=== PATIENT | female | born 1965 | race African-American/Black ===

== ENCOUNTER 2021-02-18 12:49 | Inpatient (IN) ==
[2021-02-18 14:16] LABS: Basophils # 0.1 10*3/uL (0.0-0.2); Eosinophils # 0.1 10*3/uL (0.0-0.87); Eosinophils % 1.6 % (0.00-10.9); Hematocrit 36.2 VOL% (35.7-47.0); Hemoglobin 11.5 GM/DL (12.0-16.0); Immature Granulocytes % 0.2 %; Immature Granulocytes Absolute 0.01 #; Lymphocytes % 32.5 % (21.3-54.2); Mean Corpuscular HGB Conc 31.8 GM/DL (32-36); Mean Corpuscular Volume 93.8 FL (87-102); Mean Platelet Volume 11.7 FL (9.6-12.0); Monocytes % 15.6 % (1.7-12.7); Neutrophils % 49.1 % (38.7-73.9); Platelet Count 185 T/CUMM (130-400); Red Blood Count 3.86 MC/CUMM (3.8-5.5); Red Cell Distribution Width 15.8 % (9.3-17.3); White Blood Count 6.2 T/CUMM (4-12)
[2021-02-18 14:41] LABS: INR 3.2; PT Patient Result 32.4 SECS (10.5-12.0); Partial Thromboplastin Time 34.5 SECS (23.8-32.1)
[2021-02-18 15:01] LABS: Band Neutrophils 1 % (0-10); Eosinophils 5 % (0-10); Lymphocytes 24 % (20-55); Metamyelocytes 1 %; Segmented Neutrophils 53 % (50-85); Total Cells Counted 100
[2021-02-18 15:02] LABS: Atypical Lymphocytes Few; Platelet Estimate Adequate; Polychromasia Slight
[2021-02-18 15:03] LABS: Albumin 1.9 G/DL (3.4-5.0); Bilirubin,Total 2.6 MG/DL (0.20-1.00); Osmolality,Calculated 276.7 MOS/KG (273-304); Potassium 4.3 MMOL/L (3.5-5.1)
[2021-02-18 18:05] LABS: Bacteria,Urine Occasional /HPF (Few); Bilirubin,Urine Negative (Negative); Blood, Urine Negative (Negative); Glucose,Urine (UA) Negative (Negative); Hyaline Casts,Urine 14 /LPF (0-3); Ketones,Urine Negative (Negative); Mucus,Urine Few /LPF (Occasional); Nitrite,Urine Negative (Negative); Protein,Urine Negative; RBC,Urine 5 /HPF (0-4); Squamous Epithelial Cell,Urine Few /HPF (0-10); Urine Appearance Slightly Hazy (Clear); Urine Color Amber (Yellow); Urine Specific Gravity 1.019 (1.001-1.035)
[2021-02-18] MEDS ORDERED: cefTRIAXone 1,000 MG in SODIUM CHLORIDE 0.9% 100 ML IV STA (19:15)
[2021-02-18] MEDS ORDERED: SODIUM CHLORIDE 0.9% 1,000 ML IV STA (19:57)
[2021-02-18] MEDS ORDERED: DEXTROSE 50% 25 GM/50 ML SYRINGE IV PRN (20:12)
[2021-02-18] MEDS ORDERED: GLUCAGON 1 MG VIAL IM PRN (20:12)
[2021-02-18] MEDS: LACTULOSE 20 GM/30 ML UDCUP PO SCH (21:13)
[2021-02-18] MEDS: RIFAXIMIN 550 MG TABLET PO SCH (22:30)
[2021-02-19] MEDS: LACTULOSE 20 GM/30 ML UDCUP PO SCH ×4 (04:00→22:03)
[2021-02-19 04:30] LABS: Basophils % 0.6 % (0.0-0.8); Eosinophils # 0.1 10*3/uL (0.0-0.87); Eosinophils % 1.7 % (0.00-10.9); Hemoglobin 10.2 GM/DL (12.0-16.0); Immature Granulocytes % 0.2 %; Immature Granulocytes Absolute 0.01 #; Lymphocytes # 1.6 10*3/uL (1.4-4.0); Lymphocytes % 23.8 % (21.3-54.2); Mean Corpuscular HGB Conc 31.9 GM/DL (32-36); Mean Corpuscular Volume 94.1 FL (87-102); Mean Platelet Volume 10.4 FL (9.6-12.0); Monocytes % 12.3 % (1.7-12.7); Neutrophils % 61.4 % (38.7-73.9); Platelet Count 233 T/CUMM (130-400); Red Cell Distribution Width 15.8 % (9.3-17.3); White Blood Count 6.5 T/CUMM (4-12)
[2021-02-19 04:49] LABS: Albumin 1.6 G/DL (3.4-5.0); Calcium 7.4 MG/DL (8.5-10.1); Osmolality,Calculated 276.7 MOS/KG (273-304); Potassium 3.3 MMOL/L (3.5-5.1)
[2021-02-19 04:53] LABS: Albumin 1.6 G/DL (3.4-5.0); Bilirubin,Direct 1.25 MG/DL (0.0-0.20); Bilirubin,Indirect 0.8 MG/DL (0.0-1.0); Total Protein 7.1 G/DL (6.4-8.2)
[2021-02-19] MEDS: RIFAXIMIN 550 MG TABLET PO SCH ×2 (10:13→22:03)
[2021-02-19] MEDS ORDERED: PHYTONADIONE INJ 5 MG in SODIUM CHLORIDE 0.9% 50 ML IV ONE ×2 (14:00→20:00)
[2021-02-19] MEDS ORDERED: INFLUENZA VIRUS VACCINE 0.5 ML SYRINGE IM ONE (14:30)
[2021-02-19] MEDS: SILVER SULFADIAZINE 1% CREAM 25 GM TUBE TOP SCH (16:25)
[2021-02-19] MEDS ORDERED: LORazepam 2 MG/1 ML VIAL IV ONE (17:06)
[2021-02-19] MEDS: MENTHOL/ZINC OXIDE OINT 71 GM JAR TOP SCH ×2 (18:19→22:03)
[2021-02-19] MEDS: cefTRIAXone 1,000 MG in SODIUM CHLORIDE 0.9% 100 ML IV SCH (23:59)
[2021-02-20] MEDS: RIFAXIMIN 550 MG TABLET PO SCH ×3 (00:16→21:45)
[2021-02-20] MEDS: LACTULOSE 20 GM/30 ML UDCUP PO SCH ×5 (00:16→20:33)
[2021-02-20] MEDS: LORazepam 2 MG/1 ML VIAL IV PRN ×2 (07:54→23:28)
[2021-02-20] MEDS: SILVER SULFADIAZINE 1% CREAM 25 GM TUBE TOP SCH (09:08)
[2021-02-20] MEDS: MENTHOL/ZINC OXIDE OINT 71 GM JAR TOP SCH ×2 (09:08→20:45)
[2021-02-20] MEDS: PANTOPRAZOLE 40 MG TABLET PO SCH (09:08)
[2021-02-20 09:48] LABS: Albumin 1.7 G/DL (3.4-5.0); Bilirubin,Total 2.5 MG/DL (0.20-1.00); Calcium 8.4 MG/DL (8.5-10.1); Osmolality,Calculated 273.8 MOS/KG (273-304); Potassium 3.6 MMOL/L (3.5-5.1); Total Protein 8.1 G/DL (6.4-8.2)
[2021-02-20 11:37] LABS: INR 1.3; PT Patient Result 13.8 SECS (10.5-12.0)
[2021-02-20] MEDS: FUROSEMIDE 40 MG TABLET PO SCH (14:55)
[2021-02-20] MEDS: SPIRONOLACTONE 100 MG TABLET PO SCH (14:55)
[2021-02-20] MEDS: PROPRANOLOL 20 MG TABLET PO SCH ×2 (14:55→21:45)
[2021-02-20 18:13] LABS: Neutrophils,Peritoneal Fluid 6 %
[2021-02-20 18:14] LABS: RBC,Peritoneal Fluid 36 T/CUMM
[2021-02-20] MEDS: cefTRIAXone 1,000 MG in SODIUM CHLORIDE 0.9% 100 ML IV SCH (20:31)
[2021-02-21] MEDS: LACTULOSE 20 GM/30 ML UDCUP PO SCH ×4 (02:31→20:29)
[2021-02-21 06:01] LABS: Basophils % 0.8 % (0.0-0.8); Eosinophils # 0.1 10*3/uL (0.0-0.87); Eosinophils % 2.3 % (0.00-10.9); Hematocrit 34.2 VOL% (35.7-47.0); Immature Granulocytes % 0.4 %; Immature Granulocytes Absolute 0.02 #; Lymphocytes # 1.5 10*3/uL (1.4-4.0); Lymphocytes % 28.3 % (21.3-54.2); Mean Corpuscular HGB Conc 32.2 GM/DL (32-36); Mean Corpuscular Volume 95.5 FL (87-102); Monocytes % 14.7 % (1.7-12.7); Neutrophils % 53.5 % (38.7-73.9); Platelet Count 208 T/CUMM (130-400); Red Blood Count 3.58 MC/CUMM (3.8-5.5); Red Cell Distribution Width 15.5 % (9.3-17.3); White Blood Count 5.2 T/CUMM (4-12)
[2021-02-21 06:36] LABS: Albumin 1.7 G/DL (3.4-5.0); Bilirubin,Total 2.4 MG/DL (0.20-1.00); Calcium 8.2 MG/DL (8.5-10.1); Osmolality,Calculated 272.7 MOS/KG (273-304); Potassium 4.4 MMOL/L (3.5-5.1); Total Protein 7.9 G/DL (6.4-8.2)
[2021-02-21 07:07] LABS: PT Patient Result 31.3 SECS (10.5-12.0)
[2021-02-21] MEDS: FOLIC ACID 1 MG TABLET PO SCH (09:25)
[2021-02-21] MEDS: SPIRONOLACTONE 100 MG TABLET PO SCH (09:25)
[2021-02-21] MEDS: PROPRANOLOL 20 MG TABLET PO SCH ×2 (09:26→20:29)
[2021-02-21] MEDS: FUROSEMIDE 40 MG TABLET PO SCH (09:27)
[2021-02-21] MEDS: PANTOPRAZOLE 40 MG TABLET PO SCH (09:27)
[2021-02-21] MEDS: RIFAXIMIN 550 MG TABLET PO SCH ×2 (09:28→20:29)
[2021-02-21] MEDS: MENTHOL/ZINC OXIDE OINT 71 GM JAR TOP SCH ×2 (09:29→20:29)
[2021-02-21] MEDS: SILVER SULFADIAZINE 1% CREAM 25 GM TUBE TOP SCH (09:30)
[2021-02-21] MEDS ORDERED: MORPHINE 2 MG/1 ML SYRINGE IV PRN (11:07)
[2021-02-21] MEDS: LORazepam 2 MG/1 ML VIAL IV PRN (12:56)
[2021-02-21] MEDS: cefTRIAXone 1,000 MG in SODIUM CHLORIDE 0.9% 100 ML IV SCH (20:29)
[2021-02-22] MEDS: LACTULOSE 20 GM/30 ML UDCUP PO SCH ×4 (02:57→20:35)
[2021-02-22 09:51] LABS: Basophils % 0.9 % (0.0-0.8); Eosinophils # 0.2 10*3/uL (0.0-0.87); Eosinophils % 3.6 % (0.00-10.9); Hematocrit 34.4 VOL% (35.7-47.0); Hemoglobin 10.9 GM/DL (12.0-16.0); Immature Granulocytes % 0.5 %; Immature Granulocytes Absolute 0.02 #; Lymphocytes # 1.7 10*3/uL (1.4-4.0); Mean Corpuscular HGB Conc 31.7 GM/DL (32-36); Mean Corpuscular Volume 93.5 FL (87-102); Mean Platelet Volume 9.9 FL (9.6-12.0); Monocytes % 13.3 % (1.7-12.7); Neutrophils % 43.7 % (38.7-73.9); Platelet Count 239 T/CUMM (130-400); Red Blood Count 3.68 MC/CUMM (3.8-5.5); Red Cell Distribution Width 15.4 % (9.3-17.3); White Blood Count 4.4 T/CUMM (4-12)
[2021-02-22 10:00] LABS: INR 1.2; PT Patient Result 13.8 SECS (10.5-12.0)
[2021-02-22] MEDS: RIFAXIMIN 550 MG TABLET PO SCH ×3 (10:03→20:55)
[2021-02-22] MEDS: FUROSEMIDE 40 MG TABLET PO SCH (10:03)
[2021-02-22] MEDS: PROPRANOLOL 20 MG TABLET PO SCH ×2 (10:04→20:36)
[2021-02-22] MEDS: FOLIC ACID 1 MG TABLET PO SCH (10:04)
[2021-02-22] MEDS: SPIRONOLACTONE 100 MG TABLET PO SCH (10:04)
[2021-02-22] MEDS: PANTOPRAZOLE 40 MG TABLET PO SCH (10:04)
[2021-02-22 10:09] LABS: Calcium 8.3 MG/DL (8.5-10.1); Osmolality,Calculated 279.1 MOS/KG (273-304); Potassium 3.5 MMOL/L (3.5-5.1)
[2021-02-22 10:21] LABS: Anisocytosis 1+; Band Neutrophils 2 % (0-10); Burr Cells Few; Eosinophils 6 % (0-10); Lymphocytes 34 % (20-55); Macrocytosis 1+; Platelet Estimate Normal; Segmented Neutrophils 44 % (50-85); Smudge Cells Few; Target Cells Few; Total Cells Counted 100
[2021-02-22] MEDS: MENTHOL/ZINC OXIDE OINT 71 GM JAR TOP SCH ×2 (11:36→20:36)
[2021-02-22] MEDS: CIPROFLOXACIN INJ 400 MG/200 ML PREMIX IV SCH ×2 (11:36→20:36)
[2021-02-22] MEDS: SILVER SULFADIAZINE 1% CREAM 25 GM TUBE TOP SCH (11:37)
[2021-02-23] MEDS: LACTULOSE 20 GM/30 ML UDCUP PO SCH ×4 (02:19→20:53)
[2021-02-23] MEDS: LORazepam 2 MG/1 ML VIAL IV PRN ×2 (05:07→12:45)
[2021-02-23 05:33] LABS: INR 1.7; PT Patient Result 18.2 SECS (10.5-12.0)
[2021-02-23 05:39] LABS: Calcium 7.9 MG/DL (8.5-10.1); Osmolality,Calculated 275.4 MOS/KG (273-304); Potassium 3.3 MMOL/L (3.5-5.1)
[2021-02-23 06:07] LABS: Basophils % 0.7 % (0.0-0.8); Eosinophils # 0.2 10*3/uL (0.0-0.87); Eosinophils % 3.5 % (0.00-10.9); Hematocrit 34.4 VOL% (35.7-47.0); Hemoglobin 10.7 GM/DL (12.0-16.0); Immature Granulocytes % 0.5 %; Immature Granulocytes Absolute 0.02 #; Lymphocytes # 1.5 10*3/uL (1.4-4.0); Lymphocytes % 35.1 % (21.3-54.2); Mean Corpuscular HGB Conc 31.1 GM/DL (32-36); Mean Platelet Volume 10.5 FL (9.6-12.0); Monocytes % 21.2 % (1.7-12.7); Platelet Count 183 T/CUMM (130-400); Red Blood Count 3.44 MC/CUMM (3.8-5.5); Red Cell Distribution Width 15.8 % (9.3-17.3); White Blood Count 4.3 T/CUMM (4-12)
[2021-02-23 06:57] LABS: Band Neutrophils 2 % (0-10); Eosinophils 2 % (0-10); Lymphocytes 33 % (20-55); Metamyelocytes 2 %; Platelet Estimate Normal; Segmented Neutrophils 60 % (50-85); Smudge Cells Few; Total Cells Counted 100
[2021-02-23 06:58] LABS: Anisocytosis 1+; Macrocytosis 1+; Tear Drop Cells Few
[2021-02-23] MEDS: FUROSEMIDE 40 MG TABLET PO SCH (09:30)
[2021-02-23] MEDS: RIFAXIMIN 550 MG TABLET PO SCH ×2 (09:30→20:53)
[2021-02-23] MEDS: FOLIC ACID 1 MG TABLET PO SCH (09:31)
[2021-02-23] MEDS: MENTHOL/ZINC OXIDE OINT 71 GM JAR TOP SCH ×2 (09:31→20:53)
[2021-02-23] MEDS: SILVER SULFADIAZINE 1% CREAM 25 GM TUBE TOP SCH (09:31)
[2021-02-23] MEDS: PANTOPRAZOLE 40 MG TABLET PO SCH (09:31)
[2021-02-23] MEDS: PROPRANOLOL 20 MG TABLET PO SCH ×2 (09:50→20:53)
[2021-02-23] MEDS: SPIRONOLACTONE 100 MG TABLET PO SCH (09:50)
[2021-02-23] MEDS: CIPROFLOXACIN INJ 400 MG/200 ML PREMIX IV SCH ×2 (09:50→20:53)
[2021-02-23] MEDS ORDERED: PHYTONADIONE 5 MG/5 ML ORAL.SYR PO ONE (10:30)
[2021-02-23] MEDS ORDERED: HALOPERIDOL 1 MG TABLET PO PRN (15:58)
[2021-02-24] MEDS: LACTULOSE 20 GM/30 ML UDCUP PO SCH ×4 (03:19→22:37)
[2021-02-24] MEDS: CIPROFLOXACIN INJ 400 MG/200 ML PREMIX IV SCH ×2 (08:19→22:36)
[2021-02-24] MEDS: PANTOPRAZOLE 40 MG TABLET PO SCH (08:20)
[2021-02-24] MEDS: FOLIC ACID 1 MG TABLET PO SCH (08:20)
[2021-02-24] MEDS: FUROSEMIDE 40 MG TABLET PO SCH (08:20)
[2021-02-24] MEDS: SPIRONOLACTONE 100 MG TABLET PO SCH (08:20)
[2021-02-24] MEDS: PROPRANOLOL 20 MG TABLET PO SCH ×2 (08:20→22:37)
[2021-02-24] MEDS: RIFAXIMIN 550 MG TABLET PO SCH ×2 (08:20→22:37)
[2021-02-24] MEDS: SILVER SULFADIAZINE 1% CREAM 25 GM TUBE TOP SCH (08:21)
[2021-02-24] MEDS: MENTHOL/ZINC OXIDE OINT 71 GM JAR TOP SCH ×2 (08:21→22:37)
[2021-02-24 08:58] LABS: Basophils % 0.9 % (0.0-0.8); Eosinophils # 0.1 10*3/uL (0.0-0.87); Eosinophils % 2.8 % (0.00-10.9); Hematocrit 33.5 VOL% (35.7-47.0); Hemoglobin 10.7 GM/DL (12.0-16.0); Immature Granulocytes % 0.5 %; Immature Granulocytes Absolute 0.02 #; Lymphocytes # 1.5 10*3/uL (1.4-4.0); Lymphocytes % 35.2 % (21.3-54.2); Mean Corpuscular HGB Conc 31.9 GM/DL (32-36); Mean Corpuscular Volume 96.3 FL (87-102); Mean Platelet Volume 10.5 FL (9.6-12.0); Monocytes % 20.1 % (1.7-12.7); Neutrophils % 40.5 % (38.7-73.9); Platelet Count 162 T/CUMM (130-400); Red Blood Count 3.48 MC/CUMM (3.8-5.5); Red Cell Distribution Width 15.4 % (9.3-17.3); White Blood Count 4.3 T/CUMM (4-12)
[2021-02-24 09:08] LABS: INR 1.4; PT Patient Result 15.1 SECS (10.5-12.0)
[2021-02-24 09:15] LABS: Calcium 8.1 MG/DL (8.5-10.1); Osmolality,Calculated 272.7 MOS/KG (273-304); Potassium 3.3 MMOL/L (3.5-5.1)
[2021-02-24 09:21] LABS: Band Neutrophils 4 % (0-10); Hypochromasia 1+; Lymphocytes 22 % (20-55); Segmented Neutrophils 63 % (50-85); Total Cells Counted 100
[2021-02-24 09:22] LABS: Macrocytosis 1+; Ovalocytes Slight; Platelet Estimate Adequate; Target Cells Slight
[2021-02-24] MEDS ORDERED: POTASSIUM CHLORIDE 10 MEQ TABLET PO ONE (13:55)
[2021-02-25] MEDS: LACTULOSE 20 GM/30 ML UDCUP PO SCH ×4 (04:13→21:37)
[2021-02-25 06:42] LABS: Basophils % 0.5 % (0.0-0.8); Eosinophils # 0.1 10*3/uL (0.0-0.87); Eosinophils % 1.2 % (0.00-10.9); Hematocrit 31.4 VOL% (35.7-47.0); Hemoglobin 10.5 GM/DL (12.0-16.0); Immature Granulocytes % 0.3 %; Immature Granulocytes Absolute 0.02 #; Lymphocytes # 1.7 10*3/uL (1.4-4.0); Lymphocytes % 25.7 % (21.3-54.2); Mean Corpuscular HGB Conc 33.4 GM/DL (32-36); Mean Corpuscular Volume 90.2 FL (87-102); Monocytes % 24.6 % (1.7-12.7); Neutrophils % 47.7 % (38.7-73.9); Platelet Count 167 T/CUMM (130-400); Red Blood Count 3.48 MC/CUMM (3.8-5.5); Red Cell Distribution Width 15.3 % (9.3-17.3); White Blood Count 6.5 T/CUMM (4-12)
[2021-02-25 06:55] LABS: INR 1.4; PT Patient Result 15.5 SECS (10.5-12.0)
[2021-02-25 07:10] LABS: Calcium 8.1 MG/DL (8.5-10.1); Osmolality,Calculated 277.4 MOS/KG (273-304); Potassium 3.2 MMOL/L (3.5-5.1)
[2021-02-25 07:13] LABS: Band Neutrophils 6 % (0-10); Eosinophils 1 % (0-10); Lymphocytes 15 % (20-55); Platelet Estimate Normal; Segmented Neutrophils 63 % (50-85); Smudge Cells 1+; Total Cells Counted 100
[2021-02-25 07:14] LABS: Anisocytosis 2+; Macrocytosis 1+; Tear Drop Cells Few
[2021-02-25] MEDS ORDERED: POTASSIUM CHLORIDE 10 MEQ TABLET PO ONE (09:05)
[2021-02-25] MEDS: PROPRANOLOL 20 MG TABLET PO SCH ×2 (09:19→21:38)
[2021-02-25] MEDS: SPIRONOLACTONE 100 MG TABLET PO SCH (09:19)
[2021-02-25] MEDS: RIFAXIMIN 550 MG TABLET PO SCH ×2 (09:19→21:37)
[2021-02-25] MEDS: PANTOPRAZOLE 40 MG TABLET PO SCH (09:19)
[2021-02-25] MEDS: FOLIC ACID 1 MG TABLET PO SCH (09:20)
[2021-02-25] MEDS: FUROSEMIDE 40 MG TABLET PO SCH (09:20)
[2021-02-25] MEDS: CIPROFLOXACIN INJ 400 MG/200 ML PREMIX IV SCH ×2 (10:21→21:37)
[2021-02-25] MEDS: MENTHOL/ZINC OXIDE OINT 71 GM JAR TOP SCH ×2 (10:21→21:38)
[2021-02-25] MEDS: SILVER SULFADIAZINE 1% CREAM 25 GM TUBE TOP SCH (10:21)
[2021-02-26] MEDS: LACTULOSE 20 GM/30 ML UDCUP PO SCH (04:53)
[2021-02-26 06:22] LABS: Basophils % 0.4 % (0.0-0.8); Eosinophils % 0.4 % (0.00-10.9); Hematocrit 29.1 VOL% (35.7-47.0); Hemoglobin 9.7 GM/DL (12.0-16.0); Immature Granulocytes % 0.4 %; Immature Granulocytes Absolute 0.03 #; Lymphocytes # 1.9 10*3/uL (1.4-4.0); Lymphocytes % 23.6 % (21.3-54.2); Mean Corpuscular HGB Conc 33.3 GM/DL (32-36); Mean Corpuscular Volume 89.5 FL (87-102); Mean Platelet Volume 10.8 FL (9.6-12.0); Monocytes % 23.9 % (1.7-12.7); Neutrophils % 51.3 % (38.7-73.9); Platelet Count 148 T/CUMM (130-400); Red Blood Count 3.25 MC/CUMM (3.8-5.5); Red Cell Distribution Width 15.2 % (9.3-17.3); White Blood Count 8.1 T/CUMM (4-12)
[2021-02-26 06:41] LABS: Calcium 8.2 MG/DL (8.5-10.1); Potassium 3.2 MMOL/L (3.5-5.1)
[2021-02-26 06:48] LABS: Band Neutrophils 1 % (0-10); Hypochromasia Slight; Lymphocytes 22 % (20-55); Nucleated Red Blood Cells 2 (0-5); Platelet Estimate Adequate; Segmented Neutrophils 52 % (50-85); Total Cells Counted 100
[2021-02-26 07:40] LABS: INR 1.4; PT Patient Result 15.4 SECS (10.5-12.0)
[2021-02-26] MEDS ORDERED: POTASSIUM CHLORIDE 20 MEQ TABLET PO ONE (08:14)
[2021-02-26] MEDS ORDERED: LACTULOSE 20 GM/30 ML UDCUP PO SCH (09:00)
[2021-02-26] MEDS: FOLIC ACID 1 MG TABLET PO SCH (09:42)
[2021-02-26] MEDS: PANTOPRAZOLE 40 MG TABLET PO SCH (09:42)
[2021-02-26] MEDS: PROPRANOLOL 20 MG TABLET PO SCH ×2 (09:43→21:11)
[2021-02-26] MEDS: FUROSEMIDE 40 MG TABLET PO SCH (09:43)
[2021-02-26] MEDS: CIPROFLOXACIN INJ 400 MG/200 ML PREMIX IV SCH ×2 (09:43→21:15)
[2021-02-26] MEDS: SPIRONOLACTONE 100 MG TABLET PO SCH (09:43)
[2021-02-26] MEDS: MENTHOL/ZINC OXIDE OINT 71 GM JAR TOP SCH ×2 (09:43→21:12)
[2021-02-26] MEDS: SILVER SULFADIAZINE 1% CREAM 25 GM TUBE TOP SCH (09:44)
[2021-02-26] MEDS ORDERED: LACTULOSE 320 GM/480 ML BOTTLE RECTAL ONE (10:25)
[2021-02-26] MEDS ORDERED: MAGNESIUM SULF RIDER 4 GM/100 ML PREMIX IV PRN (11:19)
[2021-02-26] MEDS ORDERED: MAGNESIUM SULF RIDER 2 GM/50 ML PREMIX IV PRN (11:19)
[2021-02-26] MEDS: LACTULOSE 320 GM/480 ML BOTTLE RECTAL SCH (22:40)
[2021-02-27 05:56] LABS: Basophils % 0.3 % (0.0-0.8); Eosinophils # 0.1 10*3/uL (0.0-0.87); Eosinophils % 0.7 % (0.00-10.9); Hematocrit 28.4 VOL% (35.7-47.0); Hemoglobin 9.4 GM/DL (12.0-16.0); Immature Granulocytes % 0.7 %; Immature Granulocytes Absolute 0.05 #; Lymphocytes # 1.6 10*3/uL (1.4-4.0); Lymphocytes % 20.7 % (21.3-54.2); Mean Corpuscular HGB Conc 33.1 GM/DL (32-36); Mean Corpuscular Volume 90.2 FL (87-102); Monocytes % 23.2 % (1.7-12.7); Neutrophils % 54.4 % (38.7-73.9); Platelet Count 138 T/CUMM (130-400); Red Blood Count 3.15 MC/CUMM (3.8-5.5); Red Cell Distribution Width 15.5 % (9.3-17.3); White Blood Count 7.6 T/CUMM (4-12)
[2021-02-27 06:02] LABS: INR 1.3; PT Patient Result 14.7 SECS (10.5-12.0)
[2021-02-27 06:15] LABS: Calcium 7.9 MG/DL (8.5-10.1); Osmolality,Calculated 275.7 MOS/KG (273-304); Potassium 3.4 MMOL/L (3.5-5.1)
[2021-02-27 06:28] LABS: Lymphocytes 14 % (20-55); Microcytosis 1+; Platelet Estimate Normal; Segmented Neutrophils 75 % (50-85); Total Cells Counted 100
[2021-02-27 06:29] LABS: Target Cells Few
[2021-02-27 06:30] LABS: Polychromasia Slight
[2021-02-27] MEDS ORDERED: POTASSIUM CHLORIDE 10 MEQ TABLET PO ONE (07:46)
[2021-02-27] MEDS: SPIRONOLACTONE 100 MG TABLET PO SCH (09:12)
[2021-02-27] MEDS: PANTOPRAZOLE 40 MG TABLET PO SCH (09:12)
[2021-02-27] MEDS: FUROSEMIDE 40 MG TABLET PO SCH (09:12)
[2021-02-27] MEDS: FOLIC ACID 1 MG TABLET PO SCH (09:12)
[2021-02-27] MEDS: PROPRANOLOL 20 MG TABLET PO SCH (09:12)
[2021-02-27] MEDS: CIPROFLOXACIN INJ 400 MG/200 ML PREMIX IV SCH (09:13)
[2021-02-27] MEDS: SILVER SULFADIAZINE 1% CREAM 25 GM TUBE TOP SCH (09:13)
[2021-02-27] MEDS: MENTHOL/ZINC OXIDE OINT 71 GM JAR TOP SCH (09:13)
[2021-02-27 12:47] VITALS: BP 109/72
[2021-02-27] MEDS: LACTULOSE 320 GM/480 ML BOTTLE RECTAL SCH (13:35)
== END 2021-02-27 15:00 | disposition home or self-care (01) | DRG 433 ==
LOC: N.ED 12:49 → SUATTDRO 20:12 → N.EDINP 20:12 → N.3E 02-19 13:36
PROVIDERS: ADMIT Internal Medicine; ATTEND Internal Medicine

== ENCOUNTER 2021-03-18 09:34 | Inpatient (IN) ==
[2021-03-18 10:54] LABS: Basophils # 0.1 10*3/uL (0.0-0.2); Basophils % 0.7 % (0.0-0.8); Eosinophils % 0.5 % (0.00-10.9); Hematocrit 37.4 VOL% (35.7-47.0); Hemoglobin 11.6 GM/DL (12.0-16.0); Immature Granulocytes % 0.4 %; Immature Granulocytes Absolute 0.03 #; Lymphocytes % 13.2 % (21.3-54.2); Mean Corpuscular Volume 94.4 FL (87-102); Mean Platelet Volume 10.7 FL (9.6-12.0); Monocytes % 4.2 % (1.7-12.7); Platelet Count 282 T/CUMM (130-400); Red Blood Count 3.96 MC/CUMM (3.8-5.5); White Blood Count 7.6 T/CUMM (4-12)
[2021-03-18 11:18] LABS: Albumin 2.4 G/DL (3.4-5.0); Bilirubin,Total 2.7 MG/DL (0.20-1.00); Calcium 10.8 MG/DL (8.5-10.1); Osmolality,Calculated 283.5 MOS/KG (273-304); Potassium 4.6 MMOL/L (3.5-5.1); Total Protein 10.7 G/DL (6.4-8.2)
[2021-03-18 11:36] LABS: Bilirubin,Urine Negative (Negative); Blood, Urine Negative (Negative); Glucose,Urine (UA) Negative (Negative); Hyaline Casts,Urine 44 /LPF (0-3); Ketones,Urine 5 mg/dL (Negative); Mucus,Urine Occasional /LPF (Occasional); Nitrite,Urine Negative (Negative); Protein,Urine Negative; RBC,Urine 1 /HPF (0-4); Squamous Epithelial Cell,Urine Occasional /HPF (0-10); Urine Appearance CLEAR (Clear); Urine Color Amber (Yellow); Urine Specific Gravity 1.016 (1.001-1.035)
[2021-03-18] MEDS ORDERED: ONDANSETRON 4 MG/2 ML VIAL IV PRN (12:33)
[2021-03-18 14:07] LABS: INR 1.2; PT Patient Result 13.7 SECS (10.5-12.0); Partial Thromboplastin Time 31.2 SECS (23.8-32.1)
[2021-03-18] MEDS: SODIUM CHLORIDE 0.9% 1,000 ML IV SCH (14:18)
[2021-03-18] MEDS: RIFAXIMIN 550 MG TABLET PO SCH ×2 (14:41→22:32)
[2021-03-18] MEDS: LACTULOSE 20 GM/30 ML UDCUP PO SCH ×3 (14:41→22:33)
[2021-03-18 15:32] LABS: Hematocrit 35.5 VOL% (35.7-47.0); Hemoglobin 11.3 GM/DL (12.0-16.0)
[2021-03-18] MEDS: LORazepam 2 MG/1 ML VIAL IV PRN (17:52)
[2021-03-18 20:51] LABS: Hematocrit 36.2 VOL% (35.7-47.0); Hemoglobin 11.2 GM/DL (12.0-16.0)
[2021-03-18] MEDS ORDERED: OLANZapine 10 MG VIAL IM PRN (21:50)
[2021-03-19] MEDS: LACTULOSE 20 GM/30 ML UDCUP PO SCH ×6 (00:27→21:42)
[2021-03-19] MEDS: LORazepam 2 MG/1 ML VIAL IV PRN ×2 (00:27→09:55)
[2021-03-19 06:04] LABS: Hematocrit 33.1 VOL% (35.7-47.0); Hemoglobin 10.2 GM/DL (12.0-16.0)
[2021-03-19 06:06] LABS: Basophils % 0.3 % (0.0-0.8); Eosinophils # 0.1 10*3/uL (0.0-0.87); Eosinophils % 0.8 % (0.00-10.9); Hematocrit 33.1 VOL% (35.7-47.0); Hemoglobin 10.3 GM/DL (12.0-16.0); Immature Granulocytes % 0.4 %; Immature Granulocytes Absolute 0.04 #; Lymphocytes # 2.2 10*3/uL (1.4-4.0); Lymphocytes % 20.3 % (21.3-54.2); Mean Corpuscular HGB Conc 31.1 GM/DL (32-36); Mean Corpuscular Volume 94.6 FL (87-102); Mean Platelet Volume 11.2 FL (9.6-12.0); Monocytes % 12.1 % (1.7-12.7); Neutrophils % 66.1 % (38.7-73.9); Platelet Count 222 T/CUMM (130-400); White Blood Count 10.8 T/CUMM (4-12)
[2021-03-19 06:12] LABS: INR 1.2; PT Patient Result 13.5 SECS (10.5-12.0)
[2021-03-19 06:34] LABS: Albumin 2.2 G/DL (3.4-5.0); Bilirubin,Total 3.1 MG/DL (0.20-1.00); Calcium 10.2 MG/DL (8.5-10.1); Osmolality,Calculated 289.1 MOS/KG (273-304); Potassium 4.4 MMOL/L (3.5-5.1); Total Protein 9.3 G/DL (6.4-8.2)
[2021-03-19 06:35] LABS: Lymphocytes 19 % (20-55); Platelet Estimate Normal; Segmented Neutrophils 72 % (50-85); Total Cells Counted 100
[2021-03-19] MEDS: SODIUM CHLORIDE 0.9% 1,000 ML IV SCH ×2 (08:40→14:41)
[2021-03-19] MEDS: PANTOPRAZOLE 40 MG TABLET PO SCH (09:57)
[2021-03-19] MEDS: RIFAXIMIN 550 MG TABLET PO SCH ×2 (09:57→21:42)
[2021-03-19] MEDS ORDERED: TUBERCULIN SKIN TEST 0.1 ML SYRINGE INTRADERM ONE (12:46)
[2021-03-19 13:14] LABS: Hematocrit 33.8 VOL% (35.7-47.0); Hemoglobin 10.5 GM/DL (12.0-16.0)
[2021-03-19 13:53] LABS: Immunoglobulin A 1060 MG/DL (70-400); Immunoglobulin G 3570 MG/DL (700-1600); Immunoglobulin M 282 MG/DL (40-230)
[2021-03-19] MEDS ORDERED: LACTULOSE 20 GM/30 ML UDCUP PO ONE (15:00)
[2021-03-19 20:59] LABS: Hematocrit 38.2 VOL% (35.7-47.0)
[2021-03-20] MEDS: SODIUM CHLORIDE 0.9% 1,000 ML IV SCH ×3 (00:49→18:20)
[2021-03-20] MEDS: LACTULOSE 20 GM/30 ML UDCUP PO SCH ×6 (00:49→22:30)
[2021-03-20] MEDS: LORazepam 2 MG/1 ML VIAL IV PRN (01:11)
[2021-03-20 02:45] LABS: Basophils % 0.4 % (0.0-0.8); Eosinophils # 0.1 10*3/uL (0.0-0.87); Eosinophils % 1.3 % (0.00-10.9); Hematocrit 34.3 VOL% (35.7-47.0); Hemoglobin 10.9 GM/DL (12.0-16.0); Immature Granulocytes % 0.2 %; Immature Granulocytes Absolute 0.02 #; Lymphocytes # 2.1 10*3/uL (1.4-4.0); Lymphocytes % 22.8 % (21.3-54.2); Mean Corpuscular HGB Conc 31.8 GM/DL (32-36); Mean Platelet Volume 10.9 FL (9.6-12.0); Monocytes % 23.9 % (1.7-12.7); Neutrophils % 51.4 % (38.7-73.9); Platelet Count 237 T/CUMM (130-400); Red Blood Count 3.65 MC/CUMM (3.8-5.5); White Blood Count 9.3 T/CUMM (4-12)
[2021-03-20 02:58] LABS: Calcium 9.2 MG/DL (8.5-10.1); Osmolality,Calculated 283.4 MOS/KG (273-304); Potassium 4.6 MMOL/L (3.5-5.1)
[2021-03-20 03:23] LABS: Eosinophils 1 % (0-10); Lymphocytes 22 % (20-55); Platelet Estimate Normal; Segmented Neutrophils 62 % (50-85); Total Cells Counted 100
[2021-03-20] MEDS: RIFAXIMIN 550 MG TABLET PO SCH ×2 (08:34→22:30)
[2021-03-20] MEDS: PANTOPRAZOLE 40 MG TABLET PO SCH ×2 (08:35→09:41)
[2021-03-20] MEDS: OMEPRAZOLE ODT 20 MG TABLET PER TUBE SCH ×3 (10:26→13:27)
[2021-03-20 10:57] LABS: Immunoglobulin A (Chem) 1060 MG/DL (70-400); Immunoglobulin G (Chem) 3570 MG/DL (700-1600); Immunoglobulin M (Chem) 282 MG/DL (40-230)
[2021-03-20 10:59] LABS: Hematocrit 35.9 VOL% (35.7-47.0)
[2021-03-21] MEDS: LORazepam 2 MG/1 ML VIAL IV PRN ×2 (01:57→07:25)
[2021-03-21] MEDS: SODIUM CHLORIDE 0.9% 1,000 ML IV SCH (01:58)
[2021-03-21] MEDS: LACTULOSE 20 GM/30 ML UDCUP PO SCH ×5 (01:59→20:21)
[2021-03-21 06:48] LABS: Basophils % 0.5 % (0.0-0.8); Eosinophils # 0.1 10*3/uL (0.0-0.87); Eosinophils % 1.1 % (0.00-10.9); Hematocrit 32.8 VOL% (35.7-47.0); Hemoglobin 10.1 GM/DL (12.0-16.0); Immature Granulocytes % 0.5 %; Immature Granulocytes Absolute 0.03 #; Lymphocytes # 1.3 10*3/uL (1.4-4.0); Lymphocytes % 21.3 % (21.3-54.2); Mean Corpuscular HGB Conc 30.8 GM/DL (32-36); Mean Corpuscular Volume 92.9 FL (87-102); Mean Platelet Volume 11.1 FL (9.6-12.0); Monocytes % 15.9 % (1.7-12.7); Neutrophils % 60.7 % (38.7-73.9); Platelet Count 207 T/CUMM (130-400); Red Blood Count 3.53 MC/CUMM (3.8-5.5); Red Cell Distribution Width 19.2 % (9.3-17.3); White Blood Count 6.1 T/CUMM (4-12)
[2021-03-21 07:07] LABS: Calcium 9.3 MG/DL (8.5-10.1); Osmolality,Calculated 293.6 MOS/KG (273-304); Potassium 3.3 MMOL/L (3.5-5.1)
[2021-03-21 07:42] LABS: Anisocytosis 1+; Band Neutrophils 5 % (0-10); Eosinophils 1 % (0-10); Lymphocytes 19 % (20-55); Macrocytosis 1+; Platelet Estimate Normal; Segmented Neutrophils 57 % (50-85); Total Cells Counted 100
[2021-03-21 07:43] LABS: Burr Cells Few; Tear Drop Cells Few
[2021-03-21] MEDS: RIFAXIMIN 550 MG TABLET PO SCH ×2 (14:08→20:21)
[2021-03-21] MEDS: OMEPRAZOLE ODT 20 MG TABLET PER TUBE SCH (14:08)
[2021-03-21] MEDS ORDERED: HALOPERIDOL 5 MG/ML AMP IM ONE (16:58)
[2021-03-21] MEDS: PROPRANOLOL 20 MG TABLET PO SCH (20:21)
[2021-03-22 03:30] LABS: Basophils % 0.3 % (0.0-0.8); Eosinophils % 0.5 % (0.00-10.9); Hematocrit 32.7 VOL% (35.7-47.0); Hemoglobin 10.1 GM/DL (12.0-16.0); Immature Granulocytes % 0.4 %; Immature Granulocytes Absolute 0.03 #; Lymphocytes # 1.2 10*3/uL (1.4-4.0); Lymphocytes % 15.7 % (21.3-54.2); Mean Corpuscular HGB Conc 30.9 GM/DL (32-36); Mean Platelet Volume 11.1 FL (9.6-12.0); Monocytes % 11.5 % (1.7-12.7); Neutrophils % 71.6 % (38.7-73.9); Platelet Count 178 T/CUMM (130-400); Red Blood Count 3.48 MC/CUMM (3.8-5.5); Red Cell Distribution Width 18.7 % (9.3-17.3); White Blood Count 7.5 T/CUMM (4-12)
[2021-03-22 03:43] LABS: Calcium 9.1 MG/DL (8.5-10.1); Osmolality,Calculated 290.7 MOS/KG (273-304); Potassium 3.2 MMOL/L (3.5-5.1)
[2021-03-22] MEDS: SODIUM CHLORIDE 0.9% 1,000 ML IV SCH (04:52)
[2021-03-22] MEDS: LACTULOSE 20 GM/30 ML UDCUP PO SCH ×6 (04:58→21:41)
[2021-03-22] MEDS: FOLIC ACID 1 MG TABLET PO SCH (10:00)
[2021-03-22] MEDS: RIFAXIMIN 550 MG TABLET PO SCH ×2 (10:00→21:41)
[2021-03-22] MEDS: PROPRANOLOL 20 MG TABLET PO SCH ×2 (10:00→21:41)
[2021-03-22] MEDS: OMEPRAZOLE ODT 20 MG TABLET PER TUBE SCH (16:01)
[2021-03-22] MEDS ORDERED: POTASSIUM BICARB EFFERVESCENT 20 MEQ TAB.EFF PER TUBE PRN (16:12)
[2021-03-22] MEDS: SODIUM CHLOR 0.45% KCL 20 MEQ 20 MEQ/1,000 ML BAG IV SCH (16:51)
[2021-03-23] MEDS: LACTULOSE 20 GM/30 ML UDCUP PO SCH ×5 (02:19→21:00)
[2021-03-23] MEDS: SODIUM CHLOR 0.45% KCL 20 MEQ 20 MEQ/1,000 ML BAG IV SCH ×2 (02:24→12:49)
[2021-03-23 05:59] LABS: Basophils % 0.3 % (0.0-0.8); Eosinophils # 0.1 10*3/uL (0.0-0.87); Eosinophils % 0.5 % (0.00-10.9); Hematocrit 36.7 VOL% (35.7-47.0); Immature Granulocytes % 0.3 %; Immature Granulocytes Absolute 0.03 #; Lymphocytes # 1.3 10*3/uL (1.4-4.0); Lymphocytes % 14.5 % (21.3-54.2); Mean Corpuscular Volume 96.3 FL (87-102); Mean Platelet Volume 11.2 FL (9.6-12.0); Monocytes % 7.4 % (1.7-12.7); Platelet Count 175 T/CUMM (130-400); Red Blood Count 3.81 MC/CUMM (3.8-5.5); White Blood Count 9.1 T/CUMM (4-12)
[2021-03-23 06:28] LABS: Calcium 8.8 MG/DL (8.5-10.1); Osmolality,Calculated 299.7 MOS/KG (273-304); Potassium 3.8 MMOL/L (3.5-5.1)
[2021-03-23 06:30] LABS: Albumin 1.9 G/DL (3.4-5.0); Bilirubin,Direct 1.46 MG/DL (0.0-0.20); Bilirubin,Indirect 0.5 MG/DL (0.0-1.0); Total Protein 8.2 G/DL (6.4-8.2)
[2021-03-23] MEDS: SODIUM CHLORIDE 0.9% 1,000 ML IV SCH ×2 (08:01→08:02)
[2021-03-23] MEDS: PROPRANOLOL 20 MG TABLET PO SCH ×2 (09:25→20:48)
[2021-03-23] MEDS: FOLIC ACID 1 MG TABLET PO SCH (09:25)
[2021-03-23] MEDS: RIFAXIMIN 550 MG TABLET PO SCH ×2 (09:25→20:48)
[2021-03-23] MEDS: OMEPRAZOLE ODT 20 MG TABLET PER TUBE SCH (09:33)
[2021-03-23] MEDS: ZINC OXIDE PASTE 113 GM TUBE TOP SCH ×2 (15:58→20:49)
[2021-03-24] MEDS ORDERED: HALOPERIDOL 5 MG/ML AMP IM ONE ×2 (00:21→14:28)
[2021-03-24 05:18] LABS: Basophils % 0.3 % (0.0-0.8); Eosinophils # 0.1 10*3/uL (0.0-0.87); Eosinophils % 1.5 % (0.00-10.9); Hematocrit 35.3 VOL% (35.7-47.0); Hemoglobin 10.9 GM/DL (12.0-16.0); Immature Granulocytes % 0.5 %; Immature Granulocytes Absolute 0.04 #; Lymphocytes # 1.5 10*3/uL (1.4-4.0); Lymphocytes % 17.1 % (21.3-54.2); Mean Corpuscular HGB Conc 30.9 GM/DL (32-36); Mean Corpuscular Volume 93.6 FL (87-102); Mean Platelet Volume 11.7 FL (9.6-12.0); Monocytes % 7.8 % (1.7-12.7); NRBC # 0.02 10*3/uL; Neutrophils % 72.8 % (38.7-73.9); Platelet Count 157 T/CUMM (130-400); Red Blood Count 3.77 MC/CUMM (3.8-5.5); Red Cell Distribution Width 19.2 % (9.3-17.3); White Blood Count 8.8 T/CUMM (4-12)
[2021-03-24] MEDS: SODIUM CHLOR 0.45% KCL 20 MEQ 20 MEQ/1,000 ML BAG IV SCH ×3 (05:20→19:01)
[2021-03-24 05:48] LABS: Calcium 8.8 MG/DL (8.5-10.1); Osmolality,Calculated 283.8 MOS/KG (273-304); Potassium 3.5 MMOL/L (3.5-5.1)
[2021-03-24] MEDS: LACTULOSE 20 GM/30 ML UDCUP PO SCH ×3 (06:01→21:09)
[2021-03-24] MEDS: RIFAXIMIN 550 MG TABLET PO SCH ×2 (09:17→21:09)
[2021-03-24] MEDS: PROPRANOLOL 20 MG TABLET PO SCH ×2 (09:17→21:09)
[2021-03-24] MEDS: FOLIC ACID 1 MG TABLET PO SCH (09:17)
[2021-03-24] MEDS: OMEPRAZOLE ODT 20 MG TABLET PER TUBE SCH (09:17)
[2021-03-24] MEDS: ZINC OXIDE PASTE 113 GM TUBE TOP SCH ×2 (15:24→21:09)
[2021-03-25] MEDS: SODIUM CHLOR 0.45% KCL 20 MEQ 20 MEQ/1,000 ML BAG IV SCH ×3 (02:22→17:16)
[2021-03-25] MEDS: LACTULOSE 20 GM/30 ML UDCUP PO SCH ×3 (06:08→21:29)
[2021-03-25 08:10] LABS: Basophils % 0.3 % (0.0-0.8); Eosinophils # 0.1 10*3/uL (0.0-0.87); Eosinophils % 1.7 % (0.00-10.9); Hematocrit 32.8 VOL% (35.7-47.0); Hemoglobin 10.6 GM/DL (12.0-16.0); Immature Granulocytes % 0.6 %; Immature Granulocytes Absolute 0.05 #; Lymphocytes # 1.7 10*3/uL (1.4-4.0); Mean Corpuscular HGB Conc 32.3 GM/DL (32-36); Mean Corpuscular Volume 90.6 FL (87-102); Mean Platelet Volume 12.1 FL (9.6-12.0); Monocytes % 7.8 % (1.7-12.7); NRBC # 0.03 10*3/uL; Neutrophils % 68.6 % (38.7-73.9); Platelet Count 134 T/CUMM (130-400); Red Blood Count 3.62 MC/CUMM (3.8-5.5); Red Cell Distribution Width 18.9 % (9.3-17.3); White Blood Count 7.9 T/CUMM (4-12)
[2021-03-25 08:26] LABS: Calcium 8.7 MG/DL (8.5-10.1); Osmolality,Calculated 276.4 MOS/KG (273-304); Potassium 4.3 MMOL/L (3.5-5.1)
[2021-03-25 08:35] LABS: Band Neutrophils 6 % (0-10); Eosinophils 2 % (0-10); Hypochromia 1+; Lymphocytes 16 % (20-55); Segmented Neutrophils 65 % (50-85); Total Cells Counted 100
[2021-03-25 08:36] LABS: Anisocytosis 1+; Microcytosis 1+; Ovalocytes Slight; Platelet Estimate Adequate; Target Cells Slight
[2021-03-25] MEDS: FOLIC ACID 1 MG TABLET PO SCH (09:16)
[2021-03-25] MEDS: ZINC OXIDE PASTE 113 GM TUBE TOP SCH ×2 (09:16→21:29)
[2021-03-25] MEDS: RIFAXIMIN 550 MG TABLET PO SCH ×2 (09:16→21:29)
[2021-03-25] MEDS: PROPRANOLOL 20 MG TABLET PO SCH ×2 (09:16→21:29)
[2021-03-25] MEDS: OMEPRAZOLE ODT 20 MG TABLET PER TUBE SCH (09:18)
[2021-03-25] MEDS ORDERED: MAGNESIUM SULF RIDER 1 GM/100 ML PREMIX IV ONE (17:53)
[2021-03-26] MEDS: SODIUM CHLOR 0.45% KCL 20 MEQ 20 MEQ/1,000 ML BAG IV SCH ×4 (02:51→21:52)
[2021-03-26] MEDS: LACTULOSE 20 GM/30 ML UDCUP PO SCH ×3 (06:12→21:52)
[2021-03-26 06:55] LABS: Basophils % 0.2 % (0.0-0.8); Eosinophils # 0.1 10*3/uL (0.0-0.87); Eosinophils % 1.3 % (0.00-10.9); Hematocrit 34.8 VOL% (35.7-47.0); Hemoglobin 10.9 GM/DL (12.0-16.0); Immature Granulocytes % 0.7 %; Immature Granulocytes Absolute 0.06 #; Lymphocytes # 1.9 10*3/uL (1.4-4.0); Lymphocytes % 22.6 % (21.3-54.2); Mean Corpuscular HGB Conc 31.3 GM/DL (32-36); Mean Corpuscular Volume 92.6 FL (87-102); Mean Platelet Volume 11.8 FL (9.6-12.0); Monocytes % 7.2 % (1.7-12.7); NRBC # 0.06 10*3/uL; Platelet Count 131 T/CUMM (130-400); Red Blood Count 3.76 MC/CUMM (3.8-5.5); Red Cell Distribution Width 19.2 % (9.3-17.3); White Blood Count 8.4 T/CUMM (4-12)
[2021-03-26 07:04] LABS: INR 1.4; PT Patient Result 15.3 SECS (10.5-12.0); Partial Thromboplastin Time 38.1 SECS (23.8-32.1)
[2021-03-26 07:16] LABS: Calcium 9.3 MG/DL (8.5-10.1); Osmolality,Calculated 273.7 MOS/KG (273-304)
[2021-03-26 07:19] LABS: Eosinophils 2 % (0-10); Hypochromia Slight; Lymphocytes 15 % (20-55); Microcytosis Slight; Ovalocytes Slight; Platelet Estimate Normal; Segmented Neutrophils 79 % (50-85); Total Cells Counted 100
[2021-03-26] MEDS: FOLIC ACID 1 MG TABLET PO SCH (08:53)
[2021-03-26] MEDS: PROPRANOLOL 20 MG TABLET PO SCH ×2 (08:53→20:48)
[2021-03-26] MEDS: OMEPRAZOLE ODT 20 MG TABLET PER TUBE SCH (08:53)
[2021-03-26] MEDS: ZINC OXIDE PASTE 113 GM TUBE TOP SCH ×2 (08:54→20:49)
[2021-03-26] MEDS: DEXTROSE 50% 25 GM/50 ML SYRINGE IV PRN ×2 (12:18→15:49)
[2021-03-27] MEDS: LACTULOSE 20 GM/30 ML UDCUP PO SCH ×4 (05:02→22:34)
[2021-03-27 06:07] LABS: Basophils % 0.1 % (0.0-0.8); Eosinophils # 0.1 10*3/uL (0.0-0.87); Eosinophils % 0.9 % (0.00-10.9); Hematocrit 35.3 VOL% (35.7-47.0); Hemoglobin 11.3 GM/DL (12.0-16.0); Immature Granulocytes % 0.6 %; Immature Granulocytes Absolute 0.05 #; Lymphocytes # 1.9 10*3/uL (1.4-4.0); Lymphocytes % 22.6 % (21.3-54.2); Mean Corpuscular Volume 90.1 FL (87-102); Mean Platelet Volume 12.1 FL (9.6-12.0); Monocytes % 7.6 % (1.7-12.7); NRBC # 0.11 10*3/uL; Neutrophils % 68.2 % (38.7-73.9); Platelet Count 136 T/CUMM (130-400); Red Blood Count 3.92 MC/CUMM (3.8-5.5); Red Cell Distribution Width 19.4 % (9.3-17.3); White Blood Count 8.5 T/CUMM (4-12)
[2021-03-27 06:19] LABS: Albumin 1.4 G/DL (3.4-5.0); Osmolality,Calculated 269.1 MOS/KG (273-304)
[2021-03-27 06:23] LABS: Potassium 6.2 MMOL/L (3.5-5.1)
[2021-03-27] MEDS ORDERED: SODIUM POLYSTYRENE SULFATE 15 GM/60 ML BOTTLE PO ONE (06:41)
[2021-03-27] MEDS ORDERED: CALCIUM GLUCONATE 1,000 MG in SODIUM CHLORIDE 0.9% 100 ML IV ONE (06:42)
[2021-03-27] MEDS: SODIUM CHLOR 0.45% KCL 20 MEQ 20 MEQ/1,000 ML BAG IV SCH (07:03)
[2021-03-27] MEDS: DEXTROSE 50% 25 GM/50 ML SYRINGE IV PRN ×2 (07:39→11:18)
[2021-03-27] MEDS: PROPRANOLOL 20 MG TABLET PO SCH ×3 (08:54→22:33)
[2021-03-27] MEDS: FOLIC ACID 1 MG TABLET PO SCH (08:54)
[2021-03-27] MEDS: OMEPRAZOLE ODT 20 MG TABLET PER TUBE SCH (08:55)
[2021-03-27] MEDS: ZINC OXIDE PASTE 113 GM TUBE TOP SCH ×2 (08:55→22:12)
[2021-03-27 09:08] LABS: Burr Cells Few; Eosinophils 4 % (0-10); Lymphocytes 11 % (20-55); Ovalocytes Few; Platelet Estimate Adequate; Polychromasia Slight; Segmented Neutrophils 80 % (50-85); Total Cells Counted 100
[2021-03-27] MEDS ORDERED: SODIUM CHLORIDE 0.9% 1,000 ML IV SCH (10:00)
[2021-03-27 11:30] LABS: Calcium 9.6 MG/DL (8.5-10.1); Osmolality,Calculated 268.1 MOS/KG (273-304); Potassium 5.4 MMOL/L (3.5-5.1)
[2021-03-27] MEDS: GLUCAGON 1 MG VIAL IM PRN (15:58)
[2021-03-27] MEDS ORDERED: DEXTROSE 5% NACL 0.9% 1,000 ML IV SCH (20:30)
[2021-03-28] MEDS: LACTULOSE 20 GM/30 ML UDCUP PO SCH ×3 (06:20→21:00)
[2021-03-28 06:57] LABS: Basophils % 0.2 % (0.0-0.8); Eosinophils # 0.1 10*3/uL (0.0-0.87); Eosinophils % 1.2 % (0.00-10.9); Hematocrit 34.5 VOL% (35.7-47.0); Immature Granulocytes % 0.6 %; Immature Granulocytes Absolute 0.05 #; Lymphocytes # 2.4 10*3/uL (1.4-4.0); Lymphocytes % 28.4 % (21.3-54.2); Mean Corpuscular HGB Conc 31.9 GM/DL (32-36); Mean Corpuscular Volume 90.6 FL (87-102); Monocytes % 9.7 % (1.7-12.7); NRBC # 0.15 10*3/uL; Neutrophils % 59.9 % (38.7-73.9); Platelet Count 118 T/CUMM (130-400); Red Blood Count 3.81 MC/CUMM (3.8-5.5); Red Cell Distribution Width 19.9 % (9.3-17.3); White Blood Count 8.6 T/CUMM (4-12)
[2021-03-28 07:22] LABS: Albumin 1.6 G/DL (3.4-5.0); Bilirubin,Direct 1.24 MG/DL (0.0-0.20); Bilirubin,Indirect 0.8 MG/DL (0.0-1.0); Calcium 9.8 MG/DL (8.5-10.1); Osmolality,Calculated 268.2 MOS/KG (273-304); Potassium 4.9 MMOL/L (3.5-5.1); Total Protein 7.4 G/DL (6.4-8.2)
[2021-03-28 08:05] LABS: Calcium 9.7 MG/DL (8.5-10.1); Osmolality,Calculated 270.1 MOS/KG (273-304)
[2021-03-28 08:12] LABS: Albumin 1.6 G/DL (3.4-5.0); Bilirubin,Total 1.9 MG/DL (0.20-1.00); Calcium 9.8 MG/DL (8.5-10.1); Osmolality,Calculated 270.1 MOS/KG (273-304); Total Protein 7.4 G/DL (6.4-8.2)
[2021-03-28 08:48] LABS: INR 1.3; PT Patient Result 14.3 SECS (10.5-12.0); Partial Thromboplastin Time 34.2 SECS (23.8-32.1)
[2021-03-28] MEDS: FOLIC ACID 1 MG TABLET PO SCH (11:20)
[2021-03-28] MEDS: ZINC OXIDE PASTE 113 GM TUBE TOP SCH ×2 (11:20→20:49)
[2021-03-28] MEDS: PROPRANOLOL 20 MG TABLET PO SCH ×2 (11:20→20:48)
[2021-03-28] MEDS: OMEPRAZOLE ODT 20 MG TABLET PER TUBE SCH (11:21)
[2021-03-28] MEDS: RIFAXIMIN 550 MG TABLET PO SCH (20:48)
[2021-03-29] MEDS ORDERED: DEXTROSE 5% NACL 0.9% 1,000 ML IV SCH ×2 (05:30→07:00)
[2021-03-29 06:53] LABS: Basophils % 0.1 % (0.0-0.8); Eosinophils # 0.1 10*3/uL (0.0-0.87); Eosinophils % 1.3 % (0.00-10.9); Immature Granulocytes % 0.7 %; Immature Granulocytes Absolute 0.05 #; Lymphocytes # 2.1 10*3/uL (1.4-4.0); Lymphocytes % 30.2 % (21.3-54.2); Mean Corpuscular HGB Conc 32.3 GM/DL (32-36); Mean Corpuscular Volume 90.6 FL (87-102); Mean Platelet Volume 12.2 FL (9.6-12.0); Monocytes % 10.1 % (1.7-12.7); NRBC # 0.08 10*3/uL; Neutrophils % 57.6 % (38.7-73.9); Red Blood Count 3.42 MC/CUMM (3.8-5.5); Red Cell Distribution Width 19.9 % (9.3-17.3)
[2021-03-29] MEDS: LACTULOSE 20 GM/30 ML UDCUP PO SCH ×2 (06:55→14:49)
[2021-03-29 06:56] LABS: Platelet Count 97 T/CUMM (130-400)
[2021-03-29 07:11] LABS: Calcium 9.4 MG/DL (8.5-10.1); Osmolality,Calculated 277.5 MOS/KG (273-304); Potassium 4.5 MMOL/L (3.5-5.1)
[2021-03-29 07:41] LABS: Eosinophils 3 % (0-10); Hypochromia 1+; Lymphocytes 26 % (20-55); Segmented Neutrophils 59 % (50-85); Total Cells Counted 100
[2021-03-29 07:42] LABS: Microcytosis 1+; Platelet Estimate Decreased; Target Cells Slight
[2021-03-29] MEDS: RIFAXIMIN 550 MG TABLET PO SCH (08:57)
[2021-03-29] MEDS: OMEPRAZOLE ODT 20 MG TABLET PER TUBE SCH (08:57)
[2021-03-29] MEDS: PANTOPRAZOLE 40 MG VIAL IV SCH (08:57)
[2021-03-29] MEDS: PROPRANOLOL 20 MG TABLET PO SCH (08:57)
[2021-03-29] MEDS: FOLIC ACID 1 MG TABLET PO SCH (08:57)
[2021-03-29] MEDS: ZINC OXIDE PASTE 113 GM TUBE TOP SCH (08:58)
[2021-03-29 22:07] LABS: Allen Test Positive
[2021-03-29 22:08] LABS: ABG Base Excess -8.8 MMOL/L (-2.5-2.5); ABG HCO3 17.4 MMOL/L (20-26); ABG Oxygen Saturation 99.6 % (95-100); ABG PCO2 33.2 MM HG (35-48); ABG PH 7.309 (7.35-7.45); ABG TCO2 15.5 MMOL/L (23-27)
[2021-03-29 22:55] LABS: Alanine Aminotransferase 53 U/L (13-56); Albumin 1.3 G/DL (3.4-5.0); Alkaline Phosphatase 258 U/L (45-117); Aspartate Amino Transferase 125 U/L (0-37); Blood Urea Nitrogen 16 MG/DL (7-18); Calcium 9.1 MG/DL (8.5-10.1); Carbon Dioxide 16 MMOL/L (21-32); Estimated Glom Filtration Rate 51 ML/MIN; Glucose 92 MG/DL (74-106); Osmolality,Calculated 277.5 MOS/KG (273-304); Potassium 4.4 MMOL/L (3.5-5.1); Sodium 139 MMOL/L (136-145); Total Protein 6.3 G/DL (6.4-8.2)
[2021-03-29] MEDS ORDERED: SODIUM CHLORIDE 0.9% 1,000 ML IV ONE (23:10)
[2021-03-29] MEDS: DEXTROSE 50% 25 GM/50 ML SYRINGE IV PRN (23:15)
[2021-03-30] MEDS ORDERED: DEXT 5% NACL 0.9% KCL 20 MEQ 20 MEQ/1,000 ML BAG IV SCH
[2021-03-30] MEDS: RIFAXIMIN 550 MG TABLET PO SCH ×3 (00:17→21:26)
[2021-03-30] MEDS: PROPRANOLOL 20 MG TABLET PO SCH (00:17)
[2021-03-30] MEDS: ZINC OXIDE PASTE 113 GM TUBE TOP SCH ×3 (00:17→21:26)
[2021-03-30] MEDS: LACTULOSE 20 GM/30 ML UDCUP PO SCH (00:18)
[2021-03-30] MEDS: MEROPENEM 500 MG in SODIUM CHLORIDE 0.9% 100 ML IV SCH ×4 (00:34→17:00)
[2021-03-30] MEDS ORDERED: SODIUM CHLORIDE 0.9% 500 ML IV ONE (00:57)
[2021-03-30 01:07] LABS: Basophils % 0.2 % (0.0-0.8); Eosinophils # 0.1 10*3/uL (0.0-0.87); Eosinophils % 2.1 % (0.00-10.9); Hematocrit 25.3 VOL% (35.7-47.0); Hemoglobin 8.3 GM/DL (12.0-16.0); Immature Granulocytes % 0.2 %; Immature Granulocytes Absolute 0.01 #; Lymphocytes # 1.6 10*3/uL (1.4-4.0); Lymphocytes % 38.2 % (21.3-54.2); Mean Corpuscular HGB Conc 32.8 GM/DL (32-36); Mean Corpuscular Volume 89.7 FL (87-102); Mean Platelet Volume 12.3 FL (9.6-12.0); Monocytes % 10.7 % (1.7-12.7); NRBC # 0.05 10*3/uL; Neutrophils % 48.6 % (38.7-73.9); Platelet Count 64 T/CUMM (130-400); Red Blood Count 2.82 MC/CUMM (3.8-5.5); Red Cell Distribution Width 19.5 % (9.3-17.3); White Blood Count 4.2 T/CUMM (4-12)
[2021-03-30] MEDS: VANCOMYCIN INJ 750 MG in SODIUM CHLORIDE 0.9% 250 ML IV SCH ×2 (01:12→13:32)
[2021-03-30 01:30] LABS: HIV Antigen/Antibody Result Nonreactive (Nonreactive); Hepatitis B Core IgM Quant 0.15 Index; Hepatitis B Surface Ag Quant < 0.10 Index; Hepatitis B Surface Ag Result Non-Reactive (NonReactive); Hepatitis C Virus Ab Quant 0.21 Index; Hepatitis C Virus Ab Result Non-Reactive (NonReactive)
[2021-03-30] MEDS ORDERED: PHENYLEPHRINE DRIP 40 MG/250 ML PREMIX IV PRN (01:56)
[2021-03-30 02:02] LABS: Eosinophils 3 % (0-10); Lymphocytes 17 % (20-55); Nucleated Red Blood Cells 2 (0-5); Platelet Estimate Decreased; Segmented Neutrophils 73 % (50-85); Total Cells Counted 100
[2021-03-30 02:05] LABS: Amorphous Crystals,Urine Few /HPF (Few); Bilirubin,Urine Negative (Negative); Blood, Urine Negative (Negative); Glucose,Urine (UA) Negative (Negative); Hyaline Casts,Urine 9 /LPF (0-3); Ketones,Urine Negative (Negative); Mucus,Urine Occasional /LPF (Occasional); Nitrite,Urine Negative (Negative); Protein,Urine Negative; Squamous Epithelial Cell,Urine Occasional /HPF (0-10); Urine Appearance CLOUDY (Clear); Urine Color Amber (Yellow); Urine Specific Gravity 1.014 (1.001-1.035); Urine Urobilinogen < 2.0 EU/DL (<2.0)
[2021-03-30 02:18] LABS: Anisocytosis 1+; Hypochromia Slight; Microcytosis 1+
[2021-03-30 02:19] LABS: Macrocytosis Slight
[2021-03-30 02:20] LABS: Ovalocytes Few
[2021-03-30 02:46] LABS: Free T4 (Free Thyroxine) 0.74 NG/DL (0.76-1.46)
[2021-03-30 04:33] LABS: Basophils % 0.2 % (0.0-0.8); Eosinophils # 0.1 10*3/uL (0.0-0.87); Eosinophils % 1.2 % (0.00-10.9); Hemoglobin 9.5 GM/DL (12.0-16.0); Immature Granulocytes % 0.5 %; Immature Granulocytes Absolute 0.03 #; Lymphocytes # 1.8 10*3/uL (1.4-4.0); Lymphocytes % 28.5 % (21.3-54.2); Mean Corpuscular HGB Conc 32.8 GM/DL (32-36); Mean Corpuscular Volume 89.8 FL (87-102); Mean Platelet Volume 11.6 FL (9.6-12.0); Monocytes % 13.9 % (1.7-12.7); NRBC # 0.11 10*3/uL; Neutrophils % 55.7 % (38.7-73.9); Platelet Count 90 T/CUMM (130-400); Red Blood Count 3.23 MC/CUMM (3.8-5.5); Red Cell Distribution Width 19.8 % (9.3-17.3); White Blood Count 6.4 T/CUMM (4-12)
[2021-03-30 04:59] LABS: Calcium 8.5 MG/DL (8.5-10.1); Osmolality,Calculated 279.3 MOS/KG (273-304); Potassium 4.1 MMOL/L (3.5-5.1)
[2021-03-30 05:02] LABS: Lymphocytes 18 % (20-55); Nucleated Red Blood Cells 5 (0-5); Platelet Estimate Decreased; Segmented Neutrophils 65 % (50-85); Total Cells Counted 100
[2021-03-30 05:03] LABS: Hypochromia 1+; Microcytosis 1+
[2021-03-30] MEDS: FOLIC ACID INJ 1 MG in SYRINGE 1 EACH IV SCH (08:44)
[2021-03-30] MEDS: PANTOPRAZOLE 40 MG VIAL IV SCH (08:45)
[2021-03-30] MEDS ORDERED: LACTULOSE 320 GM/480 ML BOTTLE RECTAL SCH (09:00)
[2021-03-30] MEDS ORDERED: MAGNESIUM SULF RIDER 4 GM/100 ML PREMIX IV PRN (09:27)
[2021-03-30] MEDS ORDERED: MAGNESIUM SULF RIDER 2 GM/50 ML PREMIX IV PRN (09:27)
[2021-03-30] MEDS ORDERED: DEXTROSE 5% NACL 0.45% 1,000 ML IV SCH (09:30)
[2021-03-30] MEDS: LACTULOSE 320 GM/480 ML BOTTLE RECTAL SCH ×2 (09:43→16:52)
[2021-03-30 10:05] LABS: ABG Base Excess -10.8 MMOL/L (-2.5-2.5); ABG HCO3 13.4 MMOL/L (20-26); ABG Oxygen Saturation 96.8 % (95-100); ABG PCO2 24.9 MM HG (35-48); ABG PH 7.349 (7.35-7.45); ABG PO2 96.2 MM HG (80-95); ABG TCO2 14.2 MMOL/L (23-27); Allen Test Positive
[2021-03-30] MEDS: HYDROCORTISONE 100 MG VIAL IV SCH ×2 (10:50→15:58)
[2021-03-30] MEDS ORDERED: ALBUMIN 25% 25 GM/100 ML VIAL IV ONE (13:57)
[2021-03-30] MEDS ORDERED: SODIUM BICARBONATE 650 MG TABLET PO SCH (14:00)
[2021-03-30] MEDS ORDERED: SODIUM BICARB INJ 100 MEQ in DEXTROSE 5% 1,000 ML IV SCH (15:00)
[2021-03-30] MEDS: MULTIVITAMIN INJ 10 ML in AMINO ACIDS/DEXT/LYTES 4.25-5% 2,000 ML IV SCH (16:01)
[2021-03-30] MEDS ORDERED: AMINO ACIDS/DEXT/LYTES 4.25-5% 2,000 ML IV SCH (17:00)
[2021-03-30] MEDS ORDERED: DEXTROSE 10% 1,000 ML IV PRN (17:00)
[2021-03-31] MEDS: HYDROCORTISONE 100 MG VIAL IV SCH ×3 (00:26→16:37)
[2021-03-31] MEDS: MEROPENEM 500 MG in SODIUM CHLORIDE 0.9% 100 ML IV SCH ×4 (00:26→17:03)
[2021-03-31] MEDS: LACTULOSE 320 GM/480 ML BOTTLE RECTAL SCH ×2 (01:30→11:04)
[2021-03-31] MEDS: VANCOMYCIN INJ 750 MG in SODIUM CHLORIDE 0.9% 250 ML IV SCH (01:37)
[2021-03-31 05:30] LABS: Hematocrit 27.3 VOL% (35.7-47.0); Immature Granulocytes % 0.7 %; Immature Granulocytes Absolute 0.05 #; Lymphocytes # 1.5 10*3/uL (1.4-4.0); Lymphocytes % 19.1 % (21.3-54.2); Mean Platelet Volume 11.9 FL (9.6-12.0); Monocytes % 4.8 % (1.7-12.7); NRBC # 0.09 10*3/uL; Neutrophils % 75.4 % (38.7-73.9); White Blood Count 7.6 T/CUMM (4-12)
[2021-03-31 05:39] LABS: Platelet Count 60 T/CUMM (130-400)
[2021-03-31] MEDS: LEVOTHYROXINE 50 MCG TABLET PO SCH (05:44)
[2021-03-31 05:54] LABS: Anisocytosis 1+; Band Neutrophils 14 % (0-10); Lymphocytes 15 % (20-55); Nucleated Red Blood Cells 3 (0-5); Platelet Estimate Decreased; Segmented Neutrophils 69 % (50-85); Total Cells Counted 100
[2021-03-31 05:55] LABS: Macrocytosis 1+; Poikilocytosis Slight; Target Cells Few; Tear Drop Cells Few
[2021-03-31 06:11] LABS: Albumin 1.6 G/DL (3.4-5.0); Bilirubin,Total 1.58 MG/DL (0.20-1.00); Calcium 8.5 MG/DL (8.5-10.1); Osmolality,Calculated 280.4 MOS/KG (273-304); Potassium 4.1 MMOL/L (3.5-5.1)
[2021-03-31] MEDS: FOLIC ACID INJ 1 MG in SYRINGE 1 EACH IV SCH (08:18)
[2021-03-31] MEDS: PANTOPRAZOLE 40 MG VIAL IV SCH (08:18)
[2021-03-31] MEDS: ZINC OXIDE PASTE 113 GM TUBE TOP SCH ×2 (08:18→20:18)
[2021-03-31] MEDS: RIFAXIMIN 550 MG TABLET PO SCH ×2 (08:19→20:18)
[2021-03-31] MEDS ORDERED: SPIRONOLACTONE 100 MG TABLET PO SCH (09:00)
[2021-03-31] MEDS: MULTIVITAMIN INJ 10 ML in AMINO ACIDS/DEXT/LYTES 4.25-5% 2,000 ML IV SCH (16:37)
[2021-04-01] MEDS: MEROPENEM 500 MG in SODIUM CHLORIDE 0.9% 100 ML IV SCH ×5 (00:16→23:47)
[2021-04-01] MEDS: HYDROCORTISONE 100 MG VIAL IV SCH ×4 (00:16→23:47)
[2021-04-01] MEDS: LEVOTHYROXINE 50 MCG TABLET PO SCH (06:12)
[2021-04-01] MEDS: FOLIC ACID INJ 1 MG in SYRINGE 1 EACH IV SCH (09:00)
[2021-04-01] MEDS: PANTOPRAZOLE 40 MG VIAL IV SCH (09:01)
[2021-04-01] MEDS: RIFAXIMIN 550 MG TABLET PO SCH ×2 (09:01→20:19)
[2021-04-01] MEDS: ZINC OXIDE PASTE 113 GM TUBE TOP SCH ×2 (09:15→20:19)
[2021-04-01] MEDS: LACTULOSE 320 GM/480 ML BOTTLE RECTAL SCH (13:18)
[2021-04-01] MEDS: MULTIVITAMIN INJ 10 ML in AMINO ACIDS/DEXT/LYTES 4.25-5% 2,000 ML IV SCH (17:45)
[2021-04-01] MEDS: LACTULOSE 20 GM/30 ML UDCUP PO SCH (20:19)
[2021-04-02] MEDS: LEVOTHYROXINE 50 MCG TABLET PO SCH (06:02)
[2021-04-02] MEDS: MEROPENEM 500 MG in SODIUM CHLORIDE 0.9% 100 ML IV SCH ×3 (06:02→21:09)
[2021-04-02 06:10] LABS: Basophils % 0.2 % (0.0-0.8); Eosinophils % 0.1 % (0.00-10.9); Hematocrit 32.3 VOL% (35.7-47.0); Hemoglobin 10.6 GM/DL (12.0-16.0); Immature Granulocytes % 1.4 %; Immature Granulocytes Absolute 0.28 #; Lymphocytes # 1.9 10*3/uL (1.4-4.0); Lymphocytes % 9.4 % (21.3-54.2); Mean Corpuscular HGB Conc 32.8 GM/DL (32-36); Monocytes % 4.6 % (1.7-12.7); NRBC # 0.38 10*3/uL; Neutrophils % 84.3 % (38.7-73.9); Red Blood Count 3.55 MC/CUMM (3.8-5.5); Red Cell Distribution Width 21.1 % (9.3-17.3)
[2021-04-02 06:11] LABS: Platelet Count 68 T/CUMM (130-400); White Blood Count 19.8 T/CUMM (4-12)
[2021-04-02 06:34] LABS: Band Neutrophils 3 % (0-10); Lymphocytes 9 % (20-55); Nucleated Red Blood Cells 4 (0-5); Platelet Estimate Decreased; Segmented Neutrophils 85 % (50-85); Total Cells Counted 100
[2021-04-02 06:35] LABS: Hypochromia Slight; Macrocytosis Slight; Target Cells Few
[2021-04-02] MEDS: RIFAXIMIN 550 MG TABLET PO SCH ×2 (08:15→21:08)
[2021-04-02] MEDS: LACTULOSE 20 GM/30 ML UDCUP PO SCH ×2 (08:16→21:08)
[2021-04-02] MEDS: PANTOPRAZOLE 40 MG VIAL IV SCH (08:16)
[2021-04-02] MEDS: HYDROCORTISONE 100 MG VIAL IV SCH ×2 (08:16→17:56)
[2021-04-02 08:17] LABS: Calcium 9.4 MG/DL (8.5-10.1); Osmolality,Calculated 276.8 MOS/KG (273-304); Potassium 4.5 MMOL/L (3.5-5.1)
[2021-04-02] MEDS: ZINC OXIDE PASTE 113 GM TUBE TOP SCH ×2 (08:24→21:09)
[2021-04-02] MEDS: FOLIC ACID INJ 1 MG in SYRINGE 1 EACH IV SCH (09:01)
[2021-04-02 10:38] LABS: Basophils % 0.1 % (0.0-0.8); Hematocrit 31.4 VOL% (35.7-47.0); Hemoglobin 10.4 GM/DL (12.0-16.0); Immature Granulocytes % 0.8 %; Immature Granulocytes Absolute 0.14 #; Lymphocytes # 1.7 10*3/uL (1.4-4.0); Lymphocytes % 10.4 % (21.3-54.2); Mean Corpuscular HGB Conc 33.1 GM/DL (32-36); Monocytes % 2.4 % (1.7-12.7); NRBC # 0.33 10*3/uL; Neutrophils % 86.3 % (38.7-73.9); Platelet Count 67 T/CUMM (130-400); Red Blood Count 3.49 MC/CUMM (3.8-5.5); Red Cell Distribution Width 20.8 % (9.3-17.3); White Blood Count 16.7 T/CUMM (4-12)
[2021-04-02 10:58] LABS: Anisocytosis 2+; Band Neutrophils 25 % (0-10); Burr Cells 1+; Lymphocytes 10 % (20-55); Macrocytosis 1+; Nucleated Red Blood Cells 1 (0-5); Platelet Estimate Decreased; Segmented Neutrophils 62 % (50-85); Total Cells Counted 100
[2021-04-02] MEDS: MULTIVITAMIN INJ 10 ML in AMINO ACIDS/DEXT/LYTES 4.25-5% 2,000 ML IV SCH (21:07)
[2021-04-03] MEDS: HYDROCORTISONE 100 MG VIAL IV SCH ×3 (01:36→16:56)
[2021-04-03] MEDS: MEROPENEM 500 MG in SODIUM CHLORIDE 0.9% 100 ML IV SCH ×4 (03:08→21:37)
[2021-04-03 04:11] LABS: Basophils % 0.1 % (0.0-0.8); Hematocrit 29.5 VOL% (35.7-47.0); Immature Granulocytes % 1.3 %; Immature Granulocytes Absolute 0.21 #; Lymphocytes # 1.9 10*3/uL (1.4-4.0); Lymphocytes % 11.9 % (21.3-54.2); Mean Corpuscular HGB Conc 33.9 GM/DL (32-36); Mean Corpuscular Volume 88.3 FL (87-102); Mean Platelet Volume 13.8 FL (9.6-12.0); Monocytes % 5.7 % (1.7-12.7); NRBC # 0.53 10*3/uL; Platelet Count 61 T/CUMM (130-400); Red Blood Count 3.34 MC/CUMM (3.8-5.5); Red Cell Distribution Width 20.9 % (9.3-17.3); White Blood Count 15.6 T/CUMM (4-12)
[2021-04-03 04:28] LABS: Calcium 9.4 MG/DL (8.5-10.1); Osmolality,Calculated 288.3 MOS/KG (273-304); Potassium 3.8 MMOL/L (3.5-5.1)
[2021-04-03 04:29] LABS: Band Neutrophils 2 % (0-10); Lymphocytes 10 % (20-55); Nucleated Red Blood Cells 8 (0-5); Platelet Estimate Decreased; Segmented Neutrophils 85 % (50-85)
[2021-04-03 04:30] LABS: Hypochromia Slight; Microcytosis Slight; Total Cells Counted 100
[2021-04-03] MEDS: LEVOTHYROXINE 50 MCG TABLET PO SCH (06:38)
[2021-04-03] MEDS: LACTULOSE 20 GM/30 ML UDCUP PO SCH ×2 (08:37→21:36)
[2021-04-03] MEDS: FOLIC ACID 1 MG TABLET PO SCH (08:37)
[2021-04-03] MEDS: ZINC OXIDE PASTE 113 GM TUBE TOP SCH ×2 (08:38→21:36)
[2021-04-03] MEDS: RIFAXIMIN 550 MG TABLET PO SCH ×2 (08:38→21:36)
[2021-04-03] MEDS: PANTOPRAZOLE 40 MG TABLET PO SCH (10:58)
[2021-04-03] MEDS: MULTIVITAMIN INJ 10 ML in AMINO ACIDS/DEXT/LYTES 4.25-5% 2,000 ML IV SCH (16:56)
[2021-04-04] MEDS: HYDROCORTISONE 100 MG VIAL IV SCH ×3 (01:13→17:29)
[2021-04-04] MEDS: MEROPENEM 500 MG in SODIUM CHLORIDE 0.9% 100 ML IV SCH ×4 (03:16→21:28)
[2021-04-04] MEDS: LEVOTHYROXINE 50 MCG TABLET PO SCH (06:10)
[2021-04-04] MEDS: PANTOPRAZOLE 40 MG TABLET PO SCH (06:10)
[2021-04-04 06:24] LABS: Basophils % 0.1 % (0.0-0.8); Hematocrit 27.5 VOL% (35.7-47.0); Hemoglobin 9.2 GM/DL (12.0-16.0); Immature Granulocytes Absolute 0.15 #; Lymphocytes # 2.3 10*3/uL (1.4-4.0); Lymphocytes % 14.7 % (21.3-54.2); Mean Corpuscular HGB Conc 33.5 GM/DL (32-36); Mean Corpuscular Volume 89.9 FL (87-102); Monocytes % 5.3 % (1.7-12.7); NRBC # 0.45 10*3/uL; Neutrophils % 78.9 % (38.7-73.9); Platelet Count 54 T/CUMM (130-400); Red Blood Count 3.06 MC/CUMM (3.8-5.5); Red Cell Distribution Width 21.2 % (9.3-17.3); White Blood Count 15.5 T/CUMM (4-12)
[2021-04-04 06:56] LABS: Calcium 9.6 MG/DL (8.5-10.1); Osmolality,Calculated 290.5 MOS/KG (273-304)
[2021-04-04 07:51] LABS: Lymphocytes 8 % (20-55); Platelet Estimate Decreased; Segmented Neutrophils 88 % (50-85); Target Cells Few; Total Cells Counted 100
[2021-04-04 07:52] LABS: Ovalocytes Few; Polychromasia Slight
[2021-04-04] MEDS: LACTULOSE 20 GM/30 ML UDCUP PO SCH ×2 (09:09→21:27)
[2021-04-04] MEDS: FOLIC ACID 1 MG TABLET PO SCH (09:10)
[2021-04-04] MEDS: ZINC OXIDE PASTE 113 GM TUBE TOP SCH ×2 (09:10→21:27)
[2021-04-04] MEDS: RIFAXIMIN 550 MG TABLET PO SCH ×2 (09:10→21:28)
[2021-04-04] MEDS: MULTIVITAMIN INJ 10 ML in AMINO ACIDS/DEXT/LYTES 4.25-5% 2,000 ML IV SCH (17:30)
[2021-04-05] MEDS: HYDROCORTISONE 100 MG VIAL IV SCH ×3 (01:04→16:56)
[2021-04-05] MEDS: MEROPENEM 500 MG in SODIUM CHLORIDE 0.9% 100 ML IV SCH ×4 (03:22→21:02)
[2021-04-05] MEDS: LEVOTHYROXINE 50 MCG TABLET PO SCH ×2 (05:15→05:33)
[2021-04-05] MEDS: PANTOPRAZOLE 40 MG TABLET PO SCH ×2 (05:15→05:33)
[2021-04-05 09:33] LABS: INR 1.3; Partial Thromboplastin Time 31.4 SECS (23.8-32.1)
[2021-04-05] MEDS: LACTULOSE 20 GM/30 ML UDCUP PO SCH ×2 (09:39→21:03)
[2021-04-05] MEDS: FOLIC ACID 1 MG TABLET PO SCH (09:40)
[2021-04-05] MEDS: ZINC OXIDE PASTE 113 GM TUBE TOP SCH ×2 (09:40→21:03)
[2021-04-05] MEDS ORDERED: KETOROLAC 15 MG/1 ML VIAL IV PRN (13:09)
[2021-04-05] MEDS: MULTIVITAMIN INJ 10 ML in AMINO ACIDS/DEXT/LYTES 4.25-5% 2,000 ML IV SCH (16:57)
[2021-04-06] MEDS: HYDROCORTISONE 100 MG VIAL IV SCH ×2 (01:23→08:13)
[2021-04-06] MEDS: MEROPENEM 500 MG in SODIUM CHLORIDE 0.9% 100 ML IV SCH ×3 (01:24→14:46)
[2021-04-06] MEDS: LEVOTHYROXINE 50 MCG TABLET PO SCH (06:11)
[2021-04-06] MEDS: PANTOPRAZOLE 40 MG TABLET PO SCH (06:11)
[2021-04-06 06:20] LABS: Basophils % 0.2 % (0.0-0.8); Hematocrit 33.2 VOL% (35.7-47.0); Immature Granulocytes % 0.8 %; Immature Granulocytes Absolute 0.14 #; Lymphocytes # 1.9 10*3/uL (1.4-4.0); Lymphocytes % 10.9 % (21.3-54.2); Mean Corpuscular HGB Conc 33.1 GM/DL (32-36); Monocytes % 6.7 % (1.7-12.7); Neutrophils % 81.4 % (38.7-73.9); Platelet Count 64 T/CUMM (130-400); Red Blood Count 3.65 MC/CUMM (3.8-5.5); Red Cell Distribution Width 22.1 % (9.3-17.3); White Blood Count 17.1 T/CUMM (4-12)
[2021-04-06 06:46] LABS: Band Neutrophils 1 % (0-10); Lymphocytes 6 % (20-55); Nucleated Red Blood Cells 5 (0-5); Platelet Estimate Decreased; Segmented Neutrophils 88 % (50-85); Total Cells Counted 100
[2021-04-06] MEDS: LACTULOSE 20 GM/30 ML UDCUP PO SCH ×2 (08:13→21:41)
[2021-04-06] MEDS: FOLIC ACID 1 MG TABLET PO SCH (08:13)
[2021-04-06] MEDS: ZINC OXIDE PASTE 113 GM TUBE TOP SCH ×2 (08:13→22:12)
[2021-04-06 10:14] LABS: Calcium 9.8 MG/DL (8.5-10.1); Osmolality,Calculated 290.7 MOS/KG (273-304); Potassium 5.4 MMOL/L (3.5-5.1)
[2021-04-06] MEDS ORDERED: TISSUE ADHESIVE 1 EACH APPLICATOR TOP ONE (11:02)
[2021-04-06] MEDS ORDERED: SODIUM POLYSTYRENE SULFATE 15 GM/60 ML BOTTLE PO ONE (15:00)
[2021-04-06] MEDS ORDERED: KETOROLAC 15 MG/1 ML VIAL IV ONE (21:45)
[2021-04-07] MEDS: LEVOTHYROXINE 50 MCG TABLET PO SCH (05:48)
[2021-04-07 07:35] LABS: Basophils % 0.1 % (0.0-0.8); Eosinophils % 0.1 % (0.00-10.9); Hematocrit 27.9 VOL% (35.7-47.0); Hemoglobin 9.4 GM/DL (12.0-16.0); Immature Granulocytes % 0.5 %; Immature Granulocytes Absolute 0.05 #; Lymphocytes # 1.4 10*3/uL (1.4-4.0); Mean Corpuscular HGB Conc 33.7 GM/DL (32-36); Mean Corpuscular Volume 89.4 FL (87-102); Monocytes % 6.7 % (1.7-12.7); NRBC # 0.08 10*3/uL; Neutrophils % 79.6 % (38.7-73.9); Platelet Count 44 T/CUMM (130-400); Red Blood Count 3.12 MC/CUMM (3.8-5.5); Red Cell Distribution Width 21.8 % (9.3-17.3); White Blood Count 10.5 T/CUMM (4-12)
[2021-04-07 07:45] LABS: Platelet Estimate Decreased
[2021-04-07 07:46] LABS: Hypochromia Slight; Microcytosis Slight
[2021-04-07 07:48] LABS: Calcium 9.3 MG/DL (8.5-10.1); Osmolality,Calculated 295.1 MOS/KG (273-304); Potassium 5.3 MMOL/L (3.5-5.1)
[2021-04-07] MEDS: ZINC OXIDE PASTE 113 GM TUBE TOP SCH ×2 (08:00→21:05)
[2021-04-07] MEDS: FOLIC ACID 1 MG TABLET PO SCH (08:00)
[2021-04-07] MEDS: LACTULOSE 20 GM/30 ML UDCUP PO SCH ×4 (08:00→21:05)
[2021-04-07] MEDS ORDERED: LACTULOSE 320 GM/480 ML BOTTLE RECTAL PRN (10:40)
[2021-04-07] MEDS ORDERED: SODIUM POLYSTYRENE SULFATE 15 GM/60 ML BOTTLE PO ONE (11:00)
[2021-04-07] MEDS ORDERED: SODIUM POLYSTYRENE SULFATE 15 GM/60 ML BOTTLE RECTAL ONE (11:00)
[2021-04-07] MEDS ORDERED: KETOROLAC 15 MG/1 ML VIAL IV PRN (11:16)
[2021-04-07] MEDS: DEXTROSE 50% 25 GM/50 ML SYRINGE IV PRN (12:17)
[2021-04-07] MEDS: MORPHINE 2 MG/1 ML SYRINGE IV PRN ×3 (12:20→21:41)
[2021-04-07] MEDS ORDERED: MORPHINE 2 MG/1 ML SYRINGE IV ONE (14:00)
[2021-04-07] MEDS ORDERED: SODIUM CHLORIDE 0.9% 1,000 ML IV PRN (14:59)
[2021-04-07] MEDS: LORazepam 2 MG/1 ML VIAL IV PRN (22:42)
[2021-04-08 00:14] LABS: Eosinophils # 0.1 10*3/uL (0.0-0.87); Eosinophils % 0.9 % (0.00-10.9); Hemoglobin 9.1 GM/DL (12.0-16.0); Immature Granulocytes % 0.4 %; Immature Granulocytes Absolute 0.03 #; Lymphocytes # 1.7 10*3/uL (1.4-4.0); Lymphocytes % 22.4 % (21.3-54.2); Mean Corpuscular HGB Conc 32.5 GM/DL (32-36); Mean Corpuscular Volume 91.8 FL (87-102); Monocytes % 9.3 % (1.7-12.7); NRBC # 0.08 10*3/uL; Platelet Count 66 T/CUMM (130-400); Red Blood Count 3.05 MC/CUMM (3.8-5.5); Red Cell Distribution Width 22.3 % (9.3-17.3); White Blood Count 7.7 T/CUMM (4-12)
[2021-04-08 00:26] LABS: Albumin 1.3 G/DL (3.4-5.0); Bilirubin,Total 2.1 MG/DL (0.20-1.00); Calcium 9.8 MG/DL (8.5-10.1); Osmolality,Calculated 295.1 MOS/KG (273-304); Potassium 4.2 MMOL/L (3.5-5.1)
[2021-04-08 02:38] LABS: Anisocytosis 1+; Macrocytosis 1+; Ovalocytes Few; Platelet Estimate Decreased
[2021-04-08 02:39] LABS: Target Cells Few; Tear Drop Cells Few
[2021-04-08] MEDS: DEXTROSE 50% 25 GM/50 ML SYRINGE IV PRN ×3 (04:37→16:07)
[2021-04-08] MEDS: LORazepam 2 MG/1 ML VIAL IV PRN (05:20)
[2021-04-08] MEDS: LEVOTHYROXINE 50 MCG TABLET PO SCH (06:23)
[2021-04-08] MEDS ORDERED: SODIUM CHLORIDE 0.9% 500 ML IV ONE (06:41)
[2021-04-08] MEDS: FOLIC ACID 1 MG TABLET PO SCH (08:30)
[2021-04-08] MEDS: LACTULOSE 20 GM/30 ML UDCUP PO SCH ×3 (08:30→21:58)
[2021-04-08] MEDS: ZINC OXIDE PASTE 113 GM TUBE TOP SCH ×3 (08:30→21:10)
[2021-04-08] MEDS: SKIN HEALING OINT (AQUAPHOR) 50 GM TUBE TOP SCH (15:00)
[2021-04-08] MEDS: MORPHINE 2 MG/1 ML SYRINGE IV PRN (21:59)
[2021-04-09 05:39] LABS: Eosinophils # 0.1 10*3/uL (0.0-0.87); Eosinophils % 1.5 % (0.00-10.9); Hematocrit 27.7 VOL% (35.7-47.0); Hemoglobin 8.8 GM/DL (12.0-16.0); Immature Granulocytes % 0.3 %; Immature Granulocytes Absolute 0.02 #; Lymphocytes # 1.3 10*3/uL (1.4-4.0); Lymphocytes % 20.6 % (21.3-54.2); Mean Corpuscular HGB Conc 31.8 GM/DL (32-36); Mean Platelet Volume 13.3 FL (9.6-12.0); Monocytes % 8.3 % (1.7-12.7); NRBC # 0.04 10*3/uL; Neutrophils % 69.3 % (38.7-73.9); Platelet Count 60 T/CUMM (130-400); Red Blood Count 2.98 MC/CUMM (3.8-5.5); Red Cell Distribution Width 22.3 % (9.3-17.3); White Blood Count 6.2 T/CUMM (4-12)
[2021-04-09 05:56] LABS: Calcium 9.9 MG/DL (8.5-10.1); Potassium 4.4 MMOL/L (3.5-5.1)
[2021-04-09 05:57] LABS: Anisocytosis 1+; Hypochromia 2+; Macrocytosis 1+; Ovalocytes Slight; Platelet Estimate Decreased; Target Cells Few
[2021-04-09] MEDS: LEVOTHYROXINE 50 MCG TABLET PO SCH (06:37)
[2021-04-09] MEDS: FOLIC ACID 1 MG TABLET PO SCH (08:36)
[2021-04-09] MEDS: LACTULOSE 20 GM/30 ML UDCUP PO SCH ×3 (08:36→20:42)
[2021-04-09] MEDS: SKIN HEALING OINT (AQUAPHOR) 50 GM TUBE TOP SCH (08:39)
[2021-04-09] MEDS: ZINC OXIDE PASTE 113 GM TUBE TOP SCH ×2 (11:48→20:42)
[2021-04-10] MEDS: DEXTROSE 50% 25 GM/50 ML SYRINGE IV PRN (05:19)
[2021-04-10] MEDS: LEVOTHYROXINE 50 MCG TABLET PO SCH (05:38)
[2021-04-10 05:56] LABS: Eosinophils # 0.1 10*3/uL (0.0-0.87); Eosinophils % 2.1 % (0.00-10.9); Hemoglobin 8.6 GM/DL (12.0-16.0); Immature Granulocytes % 0.2 %; Immature Granulocytes Absolute 0.01 #; Lymphocytes % 21.4 % (21.3-54.2); Mean Corpuscular HGB Conc 33.1 GM/DL (32-36); Mean Corpuscular Volume 91.9 FL (87-102); Mean Platelet Volume 11.8 FL (9.6-12.0); Monocytes % 7.5 % (1.7-12.7); Neutrophils % 68.8 % (38.7-73.9); Red Blood Count 2.83 MC/CUMM (3.8-5.5); White Blood Count 4.8 T/CUMM (4-12)
[2021-04-10 06:01] LABS: Platelet Count 56 T/CUMM (130-400)
[2021-04-10 06:11] LABS: Albumin 1.5 G/DL (3.4-5.0); Bilirubin,Total 2.8 MG/DL (0.20-1.00); Calcium 9.6 MG/DL (8.5-10.1); Osmolality,Calculated 291.8 MOS/KG (273-304); Potassium 3.9 MMOL/L (3.5-5.1); Total Protein 6.2 G/DL (6.4-8.2)
[2021-04-10 06:17] LABS: Hypochromia 2+
[2021-04-10 06:18] LABS: Anisocytosis 1+; Macrocytosis 1+; Platelet Estimate Decreased; Target Cells Few
[2021-04-10] MEDS: SKIN HEALING OINT (AQUAPHOR) 50 GM TUBE TOP SCH (15:28)
[2021-04-10] MEDS: LACTULOSE 20 GM/30 ML UDCUP PO SCH ×2 (15:28→20:26)
[2021-04-10] MEDS: ZINC OXIDE PASTE 113 GM TUBE TOP SCH ×2 (15:29→20:26)
[2021-04-10] MEDS: FOLIC ACID 1 MG TABLET PO SCH (15:29)
[2021-04-10] MEDS: GLUCAGON 1 MG VIAL IM PRN (15:30)
[2021-04-11] MEDS: LEVOTHYROXINE 50 MCG TABLET PO SCH (05:36)
[2021-04-11] MEDS: DEXTROSE 50% 25 GM/50 ML SYRINGE IV PRN (07:06)
[2021-04-11 07:10] LABS: Eosinophils # 0.1 10*3/uL (0.0-0.87); Eosinophils % 2.1 % (0.00-10.9); Hematocrit 24.8 VOL% (35.7-47.0); Hemoglobin 7.9 GM/DL (12.0-16.0); Immature Granulocytes % 0.2 %; Immature Granulocytes Absolute 0.01 #; Lymphocytes % 23.9 % (21.3-54.2); Mean Corpuscular HGB Conc 31.9 GM/DL (32-36); Mean Corpuscular Volume 93.6 FL (87-102); Monocytes % 9.7 % (1.7-12.7); Neutrophils % 64.1 % (38.7-73.9); Platelet Count 67 T/CUMM (130-400); Red Blood Count 2.65 MC/CUMM (3.8-5.5); White Blood Count 4.4 T/CUMM (4-12)
[2021-04-11 07:30] LABS: Albumin 1.5 G/DL (3.4-5.0); Bilirubin,Total 3.1 MG/DL (0.20-1.00); Calcium 9.4 MG/DL (8.5-10.1); Osmolality,Calculated 290.8 MOS/KG (273-304); Potassium 3.5 MMOL/L (3.5-5.1); Total Protein 6.3 G/DL (6.4-8.2)
[2021-04-11 07:36] LABS: Eosinophils 2 % (0-10); Hypochromia 1+; Lymphocytes 20 % (20-55); Microcytosis 1+; Platelet Estimate Decreased; Segmented Neutrophils 70 % (50-85); Total Cells Counted 100
[2021-04-11] MEDS: LACTULOSE 20 GM/30 ML UDCUP PO SCH ×3 (09:35→22:57)
[2021-04-11] MEDS: FOLIC ACID 1 MG TABLET PO SCH (09:36)
[2021-04-11] MEDS: ZINC OXIDE PASTE 113 GM TUBE TOP SCH ×2 (09:36→22:58)
[2021-04-11] MEDS: SKIN HEALING OINT (AQUAPHOR) 50 GM TUBE TOP SCH (12:03)
[2021-04-12 06:45] LABS: Eosinophils # 0.1 10*3/uL (0.0-0.87); Eosinophils % 3.3 % (0.00-10.9); Hematocrit 27.7 VOL% (35.7-47.0); Hemoglobin 8.9 GM/DL (12.0-16.0); Immature Granulocytes % 0.5 %; Immature Granulocytes Absolute 0.02 #; Lymphocytes # 1.1 10*3/uL (1.4-4.0); Lymphocytes % 27.3 % (21.3-54.2); Mean Corpuscular HGB Conc 32.1 GM/DL (32-36); Mean Corpuscular Volume 93.9 FL (87-102); Mean Platelet Volume 12.8 FL (9.6-12.0); Monocytes % 10.5 % (1.7-12.7); Neutrophils % 58.4 % (38.7-73.9); Red Blood Count 2.95 MC/CUMM (3.8-5.5); Red Cell Distribution Width 22.5 % (9.3-17.3)
[2021-04-12] MEDS: LEVOTHYROXINE 50 MCG TABLET PO SCH (06:59)
[2021-04-12 07:05] LABS: Albumin 1.6 G/DL (3.4-5.0); Bilirubin,Total 2.4 MG/DL (0.20-1.00); Calcium 9.8 MG/DL (8.5-10.1); Osmolality,Calculated 292.7 MOS/KG (273-304); Potassium 3.8 MMOL/L (3.5-5.1); Total Protein 6.7 G/DL (6.4-8.2)
[2021-04-12 07:08] LABS: Platelet Count 79 T/CUMM (130-400)
[2021-04-12 07:12] LABS: Hypochromia 1+; Microcytosis 1+; Platelet Estimate Decreased
[2021-04-12] MEDS: ZINC OXIDE PASTE 113 GM TUBE TOP SCH ×2 (11:09→22:30)
[2021-04-12] MEDS: LACTULOSE 20 GM/30 ML UDCUP PO SCH ×3 (11:09→22:30)
[2021-04-12] MEDS: APIXABAN 2.5 MG TABLET PO SCH ×2 (11:09→22:31)
[2021-04-12] MEDS: SKIN HEALING OINT (AQUAPHOR) 50 GM TUBE TOP SCH (11:09)
[2021-04-12] MEDS: FOLIC ACID 1 MG TABLET PO SCH (11:09)
[2021-04-13 05:43] LABS: Basophils % 0.3 % (0.0-0.8); Eosinophils # 0.1 10*3/uL (0.0-0.87); Eosinophils % 3.3 % (0.00-10.9); Hemoglobin 7.5 GM/DL (12.0-16.0); Immature Granulocytes % 0.3 %; Immature Granulocytes Absolute 0.01 #; Lymphocytes # 1.1 10*3/uL (1.4-4.0); Lymphocytes % 28.5 % (21.3-54.2); Mean Corpuscular HGB Conc 32.6 GM/DL (32-36); Mean Corpuscular Volume 94.3 FL (87-102); Monocytes % 15.8 % (1.7-12.7); NRBC # 0.02 10*3/uL; Neutrophils % 51.8 % (38.7-73.9); Platelet Count 86 T/CUMM (130-400); Red Blood Count 2.44 MC/CUMM (3.8-5.5); Red Cell Distribution Width 22.6 % (9.3-17.3)
[2021-04-13 05:58] LABS: Band Neutrophils 2 % (0-10); Eosinophils 4 % (0-10); Hypochromia 1+; Lymphocytes 30 % (20-55); Microcytosis 1+; Platelet Estimate Decreased; Segmented Neutrophils 55 % (50-85); Total Cells Counted 100
[2021-04-13 06:02] LABS: Albumin 1.5 G/DL (3.4-5.0); Bilirubin,Total 2.4 MG/DL (0.20-1.00); Calcium 9.3 MG/DL (8.5-10.1); Osmolality,Calculated 294.4 MOS/KG (273-304); Potassium 3.6 MMOL/L (3.5-5.1)
[2021-04-13] MEDS: LEVOTHYROXINE 50 MCG TABLET PO SCH (06:45)
[2021-04-13] MEDS: SKIN HEALING OINT (AQUAPHOR) 50 GM TUBE TOP SCH (09:18)
[2021-04-13] MEDS: FOLIC ACID 1 MG TABLET PO SCH (09:18)
[2021-04-13] MEDS: ZINC OXIDE PASTE 113 GM TUBE TOP SCH ×2 (09:18→23:07)
[2021-04-13] MEDS: LACTULOSE 20 GM/30 ML UDCUP PO SCH ×3 (09:18→23:07)
[2021-04-14 05:45] LABS: Albumin 1.3 G/DL (3.4-5.0); Calcium 9.2 MG/DL (8.5-10.1); Osmolality,Calculated 280.5 MOS/KG (273-304); Potassium 4.9 MMOL/L (3.5-5.1); Total Protein 6.2 G/DL (6.4-8.2)
[2021-04-14] MEDS: LEVOTHYROXINE 50 MCG TABLET PO SCH (06:17)
[2021-04-14 07:14] LABS: Basophils % 0.4 % (0.0-0.8); Eosinophils # 0.2 10*3/uL (0.0-0.87); Eosinophils % 3.2 % (0.00-10.9); Hematocrit 26.4 VOL% (35.7-47.0); Hemoglobin 8.4 GM/DL (12.0-16.0); Immature Granulocytes % 0.6 %; Immature Granulocytes Absolute 0.03 #; Lymphocytes # 1.6 10*3/uL (1.4-4.0); Lymphocytes % 28.9 % (21.3-54.2); Mean Corpuscular HGB Conc 31.8 GM/DL (32-36); Mean Corpuscular Volume 94.6 FL (87-102); Mean Platelet Volume 12.2 FL (9.6-12.0); Monocytes % 16.6 % (1.7-12.7); NRBC # 0.02 10*3/uL; Neutrophils % 50.3 % (38.7-73.9); Platelet Count 101 T/CUMM (130-400); Red Blood Count 2.79 MC/CUMM (3.8-5.5); Red Cell Distribution Width 22.7 % (9.3-17.3); White Blood Count 5.4 T/CUMM (4-12)
[2021-04-14 07:32] LABS: Band Neutrophils 1 % (0-10); Eosinophils 5 % (0-10); Hypochromia 1+; Lymphocytes 28 % (20-55); Microcytosis 1+; Platelet Estimate Decreased; Segmented Neutrophils 54 % (50-85); Total Cells Counted 100
[2021-04-14] MEDS: FOLIC ACID 1 MG TABLET PO SCH (10:54)
[2021-04-14] MEDS: SKIN HEALING OINT (AQUAPHOR) 50 GM TUBE TOP SCH (10:54)
[2021-04-14] MEDS: LACTULOSE 20 GM/30 ML UDCUP PO SCH ×3 (10:54→21:34)
[2021-04-14] MEDS: ZINC OXIDE PASTE 113 GM TUBE TOP SCH ×2 (10:54→21:34)
[2021-04-15 05:13] LABS: Basophils % 0.3 % (0.0-0.8); Eosinophils # 0.2 10*3/uL (0.0-0.87); Eosinophils % 2.5 % (0.00-10.9); Hematocrit 24.7 VOL% (35.7-47.0); Hemoglobin 7.9 GM/DL (12.0-16.0); Immature Granulocytes % 0.5 %; Immature Granulocytes Absolute 0.03 #; Lymphocytes # 1.8 10*3/uL (1.4-4.0); Lymphocytes % 29.8 % (21.3-54.2); Mean Corpuscular Volume 92.9 FL (87-102); Monocytes % 14.5 % (1.7-12.7); Neutrophils % 52.4 % (38.7-73.9); Platelet Count 126 T/CUMM (130-400); Red Blood Count 2.66 MC/CUMM (3.8-5.5); Red Cell Distribution Width 22.5 % (9.3-17.3)
[2021-04-15] MEDS: LEVOTHYROXINE 50 MCG TABLET PO SCH (05:48)
[2021-04-15 05:53] LABS: Albumin 1.6 G/DL (3.4-5.0); Bilirubin,Total 2.2 MG/DL (0.20-1.00); Calcium 9.3 MG/DL (8.5-10.1); Osmolality,Calculated 285.3 MOS/KG (273-304); Potassium 3.8 MMOL/L (3.5-5.1); Total Protein 6.7 G/DL (6.4-8.2)
[2021-04-15] MEDS: LACTULOSE 20 GM/30 ML UDCUP PO SCH ×3 (09:54→20:59)
[2021-04-15] MEDS: FOLIC ACID 1 MG TABLET PO SCH (09:54)
[2021-04-15] MEDS: ZINC OXIDE PASTE 113 GM TUBE TOP SCH ×2 (09:55→20:59)
[2021-04-15] MEDS: SKIN HEALING OINT (AQUAPHOR) 50 GM TUBE TOP SCH (14:23)
[2021-04-15] MEDS ORDERED: FUROSEMIDE 20 MG/2 ML VIAL IV ONE (15:00)
[2021-04-16] MEDS: LEVOTHYROXINE 50 MCG TABLET PO SCH (05:40)
[2021-04-16 06:34] LABS: Basophils % 0.6 % (0.0-0.8); Eosinophils # 0.1 10*3/uL (0.0-0.87); Eosinophils % 3.9 % (0.00-10.9); Hematocrit 23.2 VOL% (35.7-47.0); Hemoglobin 7.6 GM/DL (12.0-16.0); Immature Granulocytes % 0.6 %; Immature Granulocytes Absolute 0.02 #; Lymphocytes # 1.2 10*3/uL (1.4-4.0); Lymphocytes % 34.8 % (21.3-54.2); Mean Corpuscular HGB Conc 32.8 GM/DL (32-36); Mean Corpuscular Volume 93.2 FL (87-102); Monocytes % 17.4 % (1.7-12.7); Neutrophils % 42.7 % (38.7-73.9); Platelet Count 113 T/CUMM (130-400); Red Blood Count 2.49 MC/CUMM (3.8-5.5); Red Cell Distribution Width 22.7 % (9.3-17.3); White Blood Count 3.6 T/CUMM (4-12)
[2021-04-16 07:00] LABS: Albumin 1.5 G/DL (3.4-5.0); Bilirubin,Total 2.2 MG/DL (0.20-1.00); Calcium 9.1 MG/DL (8.5-10.1); Osmolality,Calculated 280.5 MOS/KG (273-304); Potassium 3.3 MMOL/L (3.5-5.1); Total Protein 6.4 G/DL (6.4-8.2)
[2021-04-16 07:01] LABS: Band Neutrophils 1 % (0-10); Eosinophils 3 % (0-10); Hypochromia 1+; Lymphocytes 23 % (20-55); Platelet Estimate Decreased; Segmented Neutrophils 57 % (50-85); Target Cells Few; Total Cells Counted 100
[2021-04-16] MEDS ORDERED: SODIUM CHLORIDE 0.9% 1,000 ML IV PRN ×2 (07:34→08:54)
[2021-04-16] MEDS: FOLIC ACID 1 MG TABLET PO SCH (10:13)
[2021-04-16] MEDS: LACTULOSE 20 GM/30 ML UDCUP PO SCH ×3 (10:13→21:32)
[2021-04-16] MEDS: ZINC OXIDE PASTE 113 GM TUBE TOP SCH ×2 (10:14→21:32)
[2021-04-16] MEDS: SKIN HEALING OINT (AQUAPHOR) 50 GM TUBE TOP SCH (16:47)
[2021-04-17] MEDS: LEVOTHYROXINE 50 MCG TABLET PO SCH (05:39)
[2021-04-17 07:37] VITALS: BP 101/74
[2021-04-17] MEDS: FOLIC ACID 1 MG TABLET PO SCH (08:58)
[2021-04-17] MEDS: LACTULOSE 20 GM/30 ML UDCUP PO SCH (08:59)
[2021-04-17] MEDS: SKIN HEALING OINT (AQUAPHOR) 50 GM TUBE TOP SCH (08:59)
[2021-04-17] MEDS: ZINC OXIDE PASTE 113 GM TUBE TOP SCH (08:59)
== END 2021-04-17 11:14 | disposition home or self-care (01) | DRG 432 ==
LOC: N.ED 09:34 → N.EDINP 12:34 → SUATTDRO 12:34 → N.3E 18:46 → N.ICU 03-29 22:06 → N.5E 04-02 12:54 → N.ICU 04-07 15:08 → N.5E 04-09 18:36
PROVIDERS: ADMIT Internal Medicine; ATTEND Internal Medicine

== ENCOUNTER 2021-05-05 14:09 | Inpatient (IN) ==
[2021-05-05] MEDS ORDERED: SODIUM CHLORIDE 0.9% 1,000 ML IV STA (16:43)
[2021-05-05 18:09] LABS: Basophils % 0.4 % (0.0-0.8); Hematocrit 38.4 VOL% (35.7-47.0); Hemoglobin 12.9 GM/DL (12.0-16.0); Immature Granulocytes % 1.3 %; Immature Granulocytes Absolute 0.07 #; Lymphocytes # 1.5 10*3/uL (1.4-4.0); Mean Corpuscular HGB Conc 33.6 GM/DL (32-36); Mean Corpuscular Volume 89.5 FL (87-102); Monocytes % 5.1 % (1.7-12.7); NRBC # 0.13 10*3/uL; Neutrophils % 65.2 % (38.7-73.9); Platelet Count 42 T/CUMM (130-400); Red Blood Count 4.29 MC/CUMM (3.8-5.5); Red Cell Distribution Width 21.8 % (9.3-17.3); White Blood Count 5.3 T/CUMM (4-12)
[2021-05-05 18:23] LABS: INR 1.4; PT Patient Result 14.8 SECS (10.5-12.0); Partial Thromboplastin Time 38.7 SECS (23.8-32.1)
[2021-05-05 18:35] LABS: Albumin 2.2 G/DL (3.4-5.0); Bilirubin,Total 4.3 MG/DL (0.20-1.00); Calcium 9.9 MG/DL (8.5-10.1); Ferritin 1004.2 ng/mL (8-252); Osmolality,Calculated 291.6 MOS/KG (273-304); Potassium 4.1 MMOL/L (3.5-5.1); Total Protein 6.6 G/DL (6.4-8.2)
[2021-05-05] MEDS ORDERED: DEXTROSE 50% 25 GM/50 ML SYRINGE IV ONE (19:06)
[2021-05-05] MEDS ORDERED: DEXTROSE 50% 25 GM/50 ML VIAL IV STA (19:06)
[2021-05-05 19:18] LABS: Band Neutrophils 2 % (0-10); Lymphocytes 23 % (20-55); Metamyelocytes 1 %; Nucleated Red Blood Cells 6 (0-5); Segmented Neutrophils 73 % (50-85); Total Cells Counted 100
[2021-05-05 19:19] LABS: Ovalocytes Slight; Target Cells Few
[2021-05-05 19:20] LABS: Atypical Lymphocytes 1+; Burr Cells Few
[2021-05-05] MEDS ORDERED: ACETAMINOPHEN 325 MG TABLET PO PRN (19:56)
[2021-05-05 20:09] LABS: Bacteria,Urine Moderate /HPF (Few); Bilirubin,Urine Negative (Negative); Blood, Urine Negative (Negative); Glucose,Urine (UA) Negative (Negative); Hyaline Casts,Urine 13 /LPF (0-3); Ketones,Urine Negative (Negative); Mucus,Urine Occasional /LPF (Occasional); Nitrite,Urine Negative (Negative); Protein,Urine Negative; RBC,Urine 10 /HPF (0-4); Squamous Epithelial Cell,Urine Occasional /HPF (0-10); Urine Appearance Slightly Hazy (Clear); Urine Color Amber (Yellow); Urine Specific Gravity 1.012 (1.001-1.035)
[2021-05-05] MEDS: RIFAXIMIN 550 MG TABLET PO SCH (21:41)
[2021-05-06 06:14] LABS: Basophils % 0.2 % (0.0-0.8); Eosinophils % 0.2 % (0.00-10.9); Hematocrit 35.9 VOL% (35.7-47.0); Hemoglobin 12.1 GM/DL (12.0-16.0); Immature Granulocytes Absolute 0.05 #; Lymphocytes # 1.4 10*3/uL (1.4-4.0); Mean Corpuscular HGB Conc 33.7 GM/DL (32-36); Mean Corpuscular Volume 89.3 FL (87-102); Monocytes % 4.7 % (1.7-12.7); NRBC # 0.14 10*3/uL; Neutrophils % 65.9 % (38.7-73.9); Red Blood Count 4.02 MC/CUMM (3.8-5.5); Red Cell Distribution Width 21.4 % (9.3-17.3); White Blood Count 4.9 T/CUMM (4-12)
[2021-05-06 06:15] LABS: Platelet Count 38 T/CUMM (130-400)
[2021-05-06 06:24] LABS: Calcium 9.4 MG/DL (8.5-10.1); Osmolality,Calculated 295.1 MOS/KG (273-304); Potassium 3.8 MMOL/L (3.5-5.1)
[2021-05-06] MEDS ORDERED: DEXTROSE 50% 25 GM/50 ML SYRINGE IV ONE ×2 (06:32→10:14)
[2021-05-06] MEDS ORDERED: DEXTROSE 50% 25 GM/50 ML VIAL IV STA ×2 (06:38→10:27)
[2021-05-06 06:53] LABS: Band Neutrophils 3 % (0-10); Eosinophils 1 % (0-10); Lymphocytes 19 % (20-55); Nucleated Red Blood Cells 2 (0-5); Segmented Neutrophils 73 % (50-85); Total Cells Counted 100
[2021-05-06 06:54] LABS: Hypochromia 1+; Microcytosis 1+; Platelet Estimate Decreased; Polychromasia Slight; Target Cells Slight
[2021-05-06] MEDS ORDERED: PANTOPRAZOLE 40 MG TABLET PO SCH (09:00)
[2021-05-06] MEDS ORDERED: FUROSEMIDE 20 MG TABLET PO SCH (09:00)
[2021-05-06] MEDS ORDERED: HALOPERIDOL 5 MG/ML AMP IM ONE (10:00)
[2021-05-06] MEDS ORDERED: SODIUM CHLORIDE 0.9% 1,000 ML IV PRN (10:15)
[2021-05-06] MEDS: DEXTROSE 5% 1,000 ML IV SCH (13:00)
[2021-05-06] MEDS ORDERED: hydrALAZINE 20 MG/1 ML VIAL IV PRN (13:02)
[2021-05-06] MEDS ORDERED: FLUCONAZOLE 150 MG TABLET PO ONE (13:06)
[2021-05-06] MEDS: LEVOTHYROXINE 50 MCG TABLET PO SCH (17:23)
[2021-05-06] MEDS: SPIRONOLACTONE 50 MG TABLET PO SCH (17:23)
[2021-05-06] MEDS: RIFAXIMIN 550 MG TABLET PO SCH ×2 (17:23→23:04)
[2021-05-06] MEDS: SKIN HEALING OINT (AQUAPHOR) 50 GM TUBE TOP SCH (23:05)
[2021-05-07] MEDS: SILVER SULFADIAZINE 1% CREAM 25 GM TUBE TOP SCH ×2 (01:21→09:00)
[2021-05-07] MEDS ORDERED: NOREPINEPHRINE 4 MG/4 ML VIAL IV ONE ×2 (03:45→07:58)
[2021-05-07] MEDS ORDERED: EPINEPHrine 1 MG/10 ML SYRINGE IV ONE ×3 (03:52→03:55)
[2021-05-07] MEDS ORDERED: ATROPINE 1 MG/10 ML SYRINGE IV ONE (03:52)
[2021-05-07] MEDS ORDERED: SODIUM BICARBONATE 50 MEQ/50 ML SYRINGE IV ONE (03:56)
[2021-05-07] MEDS ORDERED: ETOMIDATE 20 MG/10 ML VIAL IV ONE (03:58)
[2021-05-07] MEDS ORDERED: ROCURONIUM 100 MG/10 ML VIAL IV ONE (03:58)
[2021-05-07] MEDS ORDERED: PHENYLEPHRINE DRIP 40 MG/250 ML PREMIX IV ONE (03:59)
[2021-05-07] MEDS ORDERED: PHENYLEPHRINE DRIP 40 MG/250 ML PREMIX IV PRN (04:03)
[2021-05-07] MEDS ORDERED: NOREPINEPHRINE 8 MG in SODIUM CHLORIDE 0.9% 242 ML IV PRN (04:03)
[2021-05-07 04:39] LABS: ABG Base Excess -0.4 MMOL/L (-2.5-2.5); ABG HCO3 24.1 MMOL/L (20-26); ABG Oxygen Saturation 99.6 % (95-100); ABG PCO2 29.7 MM HG (35-48); ABG PH 7.482 (7.35-7.45); ABG TCO2 19.8 MMOL/L (23-27)
[2021-05-07 04:45] LABS: Basophils % 0.2 % (0.0-0.8); Eosinophils % 0.2 % (0.00-10.9); Hematocrit 32.4 VOL% (35.7-47.0); Immature Granulocytes % 1.5 %; Immature Granulocytes Absolute 0.17 #; Lymphocytes # 2.3 10*3/uL (1.4-4.0); Lymphocytes % 20.2 % (21.3-54.2); Mean Corpuscular Volume 90.5 FL (87-102); Monocytes % 3.8 % (1.7-12.7); NRBC # 0.74 10*3/uL; Neutrophils % 74.1 % (38.7-73.9); Red Blood Count 3.58 MC/CUMM (3.8-5.5); Red Cell Distribution Width 21.2 % (9.3-17.3); White Blood Count 11.6 T/CUMM (4-12)
[2021-05-07 04:51] LABS: Platelet Count 37 T/CUMM (130-400)
[2021-05-07 05:10] LABS: Albumin 1.9 G/DL (3.4-5.0); Bilirubin,Total 4.6 MG/DL (0.20-1.00); Calcium 8.9 MG/DL (8.5-10.1); Osmolality,Calculated 298.3 MOS/KG (273-304); Potassium 3.5 MMOL/L (3.5-5.1); Total Protein 5.3 G/DL (6.4-8.2)
[2021-05-07] MEDS ORDERED: MAGNESIUM SULF RIDER 2 GM/50 ML PREMIX IV PRN (05:37)
[2021-05-07] MEDS ORDERED: MAGNESIUM SULF RIDER 4 GM/100 ML PREMIX IV PRN (05:37)
[2021-05-07 06:29] LABS: Anisocytosis 3+; Band Neutrophils 48 % (0-10); Lymphocytes 4 % (20-55); Metamyelocytes 1 %; Myelocytes 1 %; Nucleated Red Blood Cells 14 (0-5); Platelet Estimate Decreased; Segmented Neutrophils 43 % (50-85); Smudge Cells 1+; Target Cells 1+; Total Cells Counted 100
[2021-05-07 06:30] LABS: Burr Cells Few; Macrocytosis 1+
[2021-05-07] MEDS: PIPERACILLIN/TAZOBACTAM 3,375 MG in SODIUM CHLORIDE 0.9% 100 ML IV SCH ×3 (07:10→23:49)
[2021-05-07 07:26] LABS: Bacteria,Urine Occasional /HPF (Few); Bilirubin,Urine Negative (Negative); Blood, Urine Negative (Negative); Glucose,Urine (UA) Negative (Negative); Ketones,Urine Negative (Negative); Mucus,Urine Occasional /LPF (Occasional); Nitrite,Urine Negative (Negative); Protein,Urine Negative; RBC,Urine 4 /HPF (0-4); Squamous Epithelial Cell,Urine Occasional /HPF (0-10); Urine Appearance Slightly Hazy (Clear); Urine Color Amber (Yellow); Urine Specific Gravity 1.013 (1.001-1.035)
[2021-05-07] MEDS: NOREPINEPHRINE 16 MG in SODIUM CHLORIDE 0.9% 242 ML IV PRN ×3 (08:06→22:12)
[2021-05-07] MEDS: NYSTATIN CREAM 15 GM TUBE TOP SCH ×2 (09:00→12:11)
[2021-05-07] MEDS: SKIN HEALING OINT (AQUAPHOR) 50 GM TUBE TOP SCH (09:00)
[2021-05-07] MEDS: DESITIN 4OZ/NYSTATIN 15 GRAM MIXTURE PASTE TOP SCH ×3 (09:00→12:12)
[2021-05-07] MEDS: LACTULOSE 320 GM/480 ML BOTTLE RECTAL SCH ×2 (09:30→15:29)
[2021-05-07] MEDS ORDERED: LACTULOSE 20 GM/30 ML UDCUP NG PRN (10:07)
[2021-05-07] MEDS: RIFAXIMIN 550 MG TABLET PO SCH ×2 (10:58→21:07)
[2021-05-07] MEDS: LEVOTHYROXINE 50 MCG TABLET PO SCH (10:58)
[2021-05-07] MEDS ORDERED: FOLIC ACID INJ 1 MG in SYRINGE 1 EACH IV SCH (11:00)
[2021-05-07] MEDS: SPIRONOLACTONE 50 MG TABLET PO SCH (11:01)
[2021-05-07] MEDS: PANTOPRAZOLE 40 MG VIAL IV SCH (12:09)
[2021-05-07] MEDS: DEXTROSE 5% 1,000 ML IV SCH (12:13)
[2021-05-07] MEDS ORDERED: ALBUTEROL 2.5 MG/3 ML NEB RESP TX ONE (12:31)
[2021-05-08] MEDS ORDERED: DEXTROSE 10% 250 ML BAG IV PRN (00:29)
[2021-05-08] MEDS ORDERED: MIDAZOLAM 100 MG in SODIUM CHLORIDE 0.9% 80 ML IV PRN (01:56)
[2021-05-08] MEDS: THIAMINE INJ 100 MG, FOLIC ACID INJ 1 MG, MULTIVITAMIN INJ 10 ML in DEXTROSE 5% NACL 0.... IV SCH (02:17)
[2021-05-08] MEDS: NYSTATIN CREAM 15 GM TUBE TOP SCH ×2 (02:40→09:53)
[2021-05-08] MEDS: NOREPINEPHRINE 16 MG in SODIUM CHLORIDE 0.9% 242 ML IV PRN ×3 (04:02→18:45)
[2021-05-08] MEDS: DESITIN 4OZ/NYSTATIN 15 GRAM MIXTURE PASTE TOP SCH ×4 (04:04→21:30)
[2021-05-08] MEDS ORDERED: HYDROCORTISONE 100 MG VIAL IV ONE (04:07)
[2021-05-08 04:32] LABS: Basophils # 0.1 10*3/uL (0.0-0.2); Basophils % 0.3 % (0.0-0.8); Eosinophils # 0.1 10*3/uL (0.0-0.87); Eosinophils % 0.1 % (0.00-10.9); Hematocrit 29.3 VOL% (35.7-47.0); Hemoglobin 9.9 GM/DL (12.0-16.0); Immature Granulocytes % 3.1 %; Immature Granulocytes Absolute 1.11 #; Lymphocytes # 5.3 10*3/uL (1.4-4.0); Lymphocytes % 14.6 % (21.3-54.2); Mean Corpuscular HGB Conc 33.8 GM/DL (32-36); Mean Corpuscular Volume 91.3 FL (87-102); Mean Platelet Volume 11.2 FL (9.6-12.0); Monocytes % 6.1 % (1.7-12.7); NRBC # 3.18 10*3/uL; Neutrophils % 75.8 % (38.7-73.9); Platelet Count 141 T/CUMM (130-400); Red Blood Count 3.21 MC/CUMM (3.8-5.5); Red Cell Distribution Width 21.9 % (9.3-17.3); White Blood Count 36.1 T/CUMM (4-12)
[2021-05-08 04:38] LABS: ABG Base Excess -6.8 MMOL/L (-2.5-2.5); ABG HCO3 18.9 MMOL/L (20-26); ABG Oxygen Saturation 99.5 % (95-100); ABG PH 7.394 (7.35-7.45); ABG TCO2 15.8 MMOL/L (23-27)
[2021-05-08 04:51] LABS: Albumin 1.9 G/DL (3.4-5.0); Calcium 8.2 MG/DL (8.5-10.1); Osmolality,Calculated 291.7 MOS/KG (273-304); Potassium 3.5 MMOL/L (3.5-5.1); Total Protein 5.5 G/DL (6.4-8.2)
[2021-05-08 05:01] LABS: Band Neutrophils 1 % (0-10); Lymphocytes 7 % (20-55); Nucleated Red Blood Cells 14 (0-5); Segmented Neutrophils 90 % (50-85); Total Cells Counted 100
[2021-05-08 05:02] LABS: Macrocytosis 1+; Platelet Estimate Adequate; Target Cells 1+
[2021-05-08] MEDS: DEXTROSE 5% 1,000 ML IV SCH ×2 (06:06→16:16)
[2021-05-08] MEDS: PIPERACILLIN/TAZOBACTAM 3,375 MG in SODIUM CHLORIDE 0.9% 100 ML IV SCH ×3 (07:28→22:22)
[2021-05-08] MEDS ORDERED: THIAMINE 200 MG/2 ML VIAL IV SCH (09:00)
[2021-05-08] MEDS: HYDROCORTISONE 100 MG VIAL IV SCH ×3 (09:01→20:23)
[2021-05-08] MEDS: PANTOPRAZOLE 40 MG VIAL IV SCH (09:49)
[2021-05-08] MEDS: SILVER SULFADIAZINE 1% CREAM 25 GM TUBE TOP SCH (09:53)
[2021-05-08] MEDS: SKIN HEALING OINT (AQUAPHOR) 50 GM TUBE TOP SCH (09:53)
[2021-05-08] MEDS ORDERED: POTASSIUM BICARB EFFERVESCENT 20 MEQ TAB.EFF PO ONE (09:55)
[2021-05-08] MEDS: SPIRONOLACTONE 50 MG TABLET PO SCH (11:36)
[2021-05-08] MEDS: RIFAXIMIN 550 MG TABLET PO SCH ×2 (11:36→20:23)
[2021-05-08] MEDS: LEVOTHYROXINE 50 MCG TABLET PO SCH (11:37)
[2021-05-08 12:17] LABS: Neutrophils,Peritoneal Fluid 67 %; RBC,Peritoneal Fluid 39 T/CUMM
[2021-05-08] MEDS ORDERED: EPINEPHrine 1 MG/10 ML SYRINGE IV ONE (21:07)
[2021-05-08] MEDS ORDERED: SODIUM BICARBONATE 50 MEQ/50 ML SYRINGE IV ONE (21:07)
[2021-05-08] MEDS ORDERED: ETOMIDATE 20 MG/10 ML VIAL IV ONE (21:09)
[2021-05-09] MEDS: DEXTROSE 5% 1,000 ML IV SCH ×2 (02:18→16:17)
[2021-05-09] MEDS: HYDROCORTISONE 100 MG VIAL IV SCH ×5 (02:55→23:22)
[2021-05-09] MEDS: NOREPINEPHRINE 16 MG in SODIUM CHLORIDE 0.9% 242 ML IV PRN ×2 (04:15→15:30)
[2021-05-09 04:42] LABS: ABG Base Excess -5.2 MMOL/L (-2.5-2.5); ABG HCO3 20.2 MMOL/L (20-26); ABG Oxygen Saturation 99.8 % (95-100); ABG PCO2 26.7 MM HG (35-48); ABG PH 7.434 (7.35-7.45); ABG TCO2 16.2 MMOL/L (23-27)
[2021-05-09] MEDS: THIAMINE INJ 100 MG, FOLIC ACID INJ 1 MG, MULTIVITAMIN INJ 10 ML in DEXTROSE 5% NACL 0.... IV SCH (04:54)
[2021-05-09 04:58] LABS: Basophils # 0.1 10*3/uL (0.0-0.2); Basophils % 0.2 % (0.0-0.8); Eosinophils % 0.1 % (0.00-10.9); Hematocrit 29.9 VOL% (35.7-47.0); Immature Granulocytes % 2.9 %; Lymphocytes # 2.7 10*3/uL (1.4-4.0); Lymphocytes % 9.8 % (21.3-54.2); Mean Corpuscular HGB Conc 33.4 GM/DL (32-36); Mean Corpuscular Volume 91.4 FL (87-102); Mean Platelet Volume 10.9 FL (9.6-12.0); Monocytes % 8.2 % (1.7-12.7); NRBC # 2.75 10*3/uL; Neutrophils % 78.8 % (38.7-73.9); Red Blood Count 3.27 MC/CUMM (3.8-5.5); Red Cell Distribution Width 22.5 % (9.3-17.3); White Blood Count 27.7 T/CUMM (4-12)
[2021-05-09 05:01] LABS: Platelet Count 101 T/CUMM (130-400)
[2021-05-09 05:13] LABS: Albumin 1.6 G/DL (3.4-5.0); Bilirubin,Total 8.5 MG/DL (0.20-1.00); Calcium 7.7 MG/DL (8.5-10.1); Osmolality,Calculated 279.8 MOS/KG (273-304); Potassium 3.7 MMOL/L (3.5-5.1); Total Protein 5.4 G/DL (6.4-8.2)
[2021-05-09 05:18] LABS: Band Neutrophils 3 % (0-10); Lymphocytes 3 % (20-55); Nucleated Red Blood Cells 15 (0-5); Platelet Estimate Decreased; Segmented Neutrophils 90 % (50-85); Total Cells Counted 100
[2021-05-09] MEDS: PIPERACILLIN/TAZOBACTAM 3,375 MG in SODIUM CHLORIDE 0.9% 100 ML IV SCH ×3 (07:15→23:24)
[2021-05-09] MEDS: SPIRONOLACTONE 50 MG TABLET PO SCH (09:24)
[2021-05-09] MEDS: RIFAXIMIN 550 MG TABLET PO SCH ×2 (09:24→20:47)
[2021-05-09] MEDS: LEVOTHYROXINE 50 MCG TABLET PO SCH (09:24)
[2021-05-09] MEDS: SKIN HEALING OINT (AQUAPHOR) 50 GM TUBE TOP SCH (09:25)
[2021-05-09] MEDS: PANTOPRAZOLE 40 MG VIAL IV SCH (09:25)
[2021-05-09] MEDS: SILVER SULFADIAZINE 1% CREAM 25 GM TUBE TOP SCH (09:26)
[2021-05-09] MEDS: DESITIN 4OZ/NYSTATIN 15 GRAM MIXTURE PASTE TOP SCH ×2 (09:26→20:47)
[2021-05-10] MEDS: THIAMINE INJ 100 MG, FOLIC ACID INJ 1 MG, MULTIVITAMIN INJ 10 ML in DEXTROSE 5% NACL 0.... IV SCH (03:32)
[2021-05-10 04:31] LABS: ABG Base Excess -6.6 MMOL/L (-2.5-2.5); ABG HCO3 19.1 MMOL/L (20-26); ABG Oxygen Saturation 99.1 % (95-100); ABG PCO2 29.5 MM HG (35-48); ABG PH 7.381 (7.35-7.45); ABG TCO2 15.9 MMOL/L (23-27)
[2021-05-10 04:51] LABS: Basophils % 0.2 % (0.0-0.8); Hematocrit 29.9 VOL% (35.7-47.0); Immature Granulocytes % 2.6 %; Immature Granulocytes Absolute 0.55 #; Lymphocytes # 2.2 10*3/uL (1.4-4.0); Lymphocytes % 10.3 % (21.3-54.2); Mean Corpuscular HGB Conc 33.4 GM/DL (32-36); Mean Corpuscular Volume 92.3 FL (87-102); Mean Platelet Volume 11.2 FL (9.6-12.0); Monocytes % 8.9 % (1.7-12.7); NRBC # 1.84 10*3/uL; Platelet Count 72 T/CUMM (130-400); Red Blood Count 3.24 MC/CUMM (3.8-5.5)
[2021-05-10 04:59] LABS: Albumin 1.6 G/DL (3.4-5.0); Calcium 7.7 MG/DL (8.5-10.1); Osmolality,Calculated 284.5 MOS/KG (273-304); Potassium 3.9 MMOL/L (3.5-5.1); Total Protein 5.4 G/DL (6.4-8.2)
[2021-05-10 05:11] LABS: Bilirubin,Total 13.1 MG/DL (0.20-1.00)
[2021-05-10 05:13] LABS: Hypochromia 1+; Lymphocytes 6 % (20-55); Microcytosis 1+; Nucleated Red Blood Cells 21 (0-5); Platelet Estimate Decreased; Segmented Neutrophils 85 % (50-85); Total Cells Counted 100
[2021-05-10] MEDS: PIPERACILLIN/TAZOBACTAM 3,375 MG in SODIUM CHLORIDE 0.9% 100 ML IV SCH (06:44)
[2021-05-10] MEDS: HYDROCORTISONE 100 MG VIAL IV SCH ×3 (06:44→22:09)
[2021-05-10] MEDS: PANTOPRAZOLE 40 MG VIAL IV SCH (09:33)
[2021-05-10] MEDS: LEVOTHYROXINE 50 MCG TABLET PO SCH (09:33)
[2021-05-10] MEDS: SKIN HEALING OINT (AQUAPHOR) 50 GM TUBE TOP SCH (09:34)
[2021-05-10] MEDS: SPIRONOLACTONE 50 MG TABLET PO SCH (09:34)
[2021-05-10] MEDS: RIFAXIMIN 550 MG TABLET PO SCH ×2 (09:34→21:32)
[2021-05-10] MEDS: DESITIN 4OZ/NYSTATIN 15 GRAM MIXTURE PASTE TOP SCH ×2 (09:34→21:32)
[2021-05-10] MEDS: SILVER SULFADIAZINE 1% CREAM 25 GM TUBE TOP SCH (09:34)
[2021-05-10] MEDS: LEVOFLOXACIN INJ 750 MG/150 ML PREMIX IV SCH (09:49)
[2021-05-10] MEDS: metroNIDAZOLE INJ 500 MG/100 ML PREMIX IV SCH ×2 (09:49→16:00)
[2021-05-10] MEDS: DEXMEDETOMIDINE 400 MCG in SODIUM CHLORIDE 0.9% 96 ML IV PRN (21:14)
[2021-05-11] MEDS: metroNIDAZOLE INJ 500 MG/100 ML PREMIX IV SCH ×3 (01:11→16:05)
[2021-05-11] MEDS: THIAMINE INJ 100 MG, FOLIC ACID INJ 1 MG, MULTIVITAMIN INJ 10 ML in DEXTROSE 5% NACL 0.... IV SCH (03:45)
[2021-05-11 04:42] LABS: Basophils # 0.1 10*3/uL (0.0-0.2); Basophils % 0.3 % (0.0-0.8); Hematocrit 29.1 VOL% (35.7-47.0); Hemoglobin 9.7 GM/DL (12.0-16.0); Immature Granulocytes % 3.1 %; Immature Granulocytes Absolute 0.64 #; Lymphocytes # 1.6 10*3/uL (1.4-4.0); Lymphocytes % 7.5 % (21.3-54.2); Mean Corpuscular HGB Conc 33.3 GM/DL (32-36); Mean Corpuscular Volume 93.6 FL (87-102); Mean Platelet Volume 12.5 FL (9.6-12.0); Monocytes % 10.6 % (1.7-12.7); NRBC # 1.83 10*3/uL; Neutrophils % 78.5 % (38.7-73.9); Red Blood Count 3.11 MC/CUMM (3.8-5.5); Red Cell Distribution Width 23.6 % (9.3-17.3); White Blood Count 20.5 T/CUMM (4-12)
[2021-05-11 04:43] LABS: Platelet Count 71 T/CUMM (130-400)
[2021-05-11 04:56] LABS: Albumin 1.6 G/DL (3.4-5.0); Calcium 8.2 MG/DL (8.5-10.1); Osmolality,Calculated 285.4 MOS/KG (273-304); Potassium 3.9 MMOL/L (3.5-5.1); Total Protein 5.4 G/DL (6.4-8.2)
[2021-05-11 05:03] LABS: Band Neutrophils 3 % (0-10); Hypochromia 1+; Lymphocytes 3 % (20-55); Nucleated Red Blood Cells 15 (0-5); Platelet Estimate Decreased; Segmented Neutrophils 87 % (50-85); Total Cells Counted 100
[2021-05-11 05:04] LABS: Macrocytosis Slight
[2021-05-11 05:08] LABS: Bilirubin,Total 16.5 MG/DL (0.20-1.00)
[2021-05-11] MEDS: DEXMEDETOMIDINE 400 MCG in SODIUM CHLORIDE 0.9% 96 ML IV PRN (05:20)
[2021-05-11] MEDS: HYDROCORTISONE 100 MG VIAL IV SCH ×3 (07:26→22:50)
[2021-05-11] MEDS: LEVOTHYROXINE 50 MCG TABLET PO SCH (08:55)
[2021-05-11] MEDS: RIFAXIMIN 550 MG TABLET PO SCH ×2 (08:55→20:49)
[2021-05-11] MEDS: SPIRONOLACTONE 50 MG TABLET PO SCH (08:55)
[2021-05-11] MEDS: PANTOPRAZOLE 40 MG VIAL IV SCH (08:56)
[2021-05-11] MEDS: SKIN HEALING OINT (AQUAPHOR) 50 GM TUBE TOP SCH (08:59)
[2021-05-11] MEDS: DESITIN 4OZ/NYSTATIN 15 GRAM MIXTURE PASTE TOP SCH ×2 (08:59→20:49)
[2021-05-11] MEDS: SILVER SULFADIAZINE 1% CREAM 25 GM TUBE TOP SCH (08:59)
[2021-05-11 10:32] LABS: Allen Test Positive; Pt O2 Delivery Device Ventilator
[2021-05-11 10:33] LABS: ABG Base Excess -6.2 MMOL/L (-2.5-2.5); ABG HCO3 17.7 MMOL/L (20-26); ABG Oxygen Saturation 97.7 % (95-100); ABG PCO2 29.9 MM HG (35-48); ABG PH 7.391 (7.35-7.45); ABG PO2 98.6 MM HG (80-95); ABG TCO2 18.7 MMOL/L (23-27)
[2021-05-11] MEDS ORDERED: NOREPINEPHRINE 8 MG in SODIUM CHLORIDE 0.9% 242 ML IV PRN (14:50)
[2021-05-11] MEDS ORDERED: NOREPINEPHRINE 4 MG/4 ML VIAL IV ONE (15:17)
[2021-05-11] MEDS ORDERED: ETOMIDATE 20 MG/10 ML VIAL IV ONE ×4 (15:24→16:19)
[2021-05-11] MEDS ORDERED: SUCCINYLCHOLINE 200 MG/10 ML VIAL ONE (15:24)
[2021-05-11] MEDS ORDERED: SUCCINYLCHOLINE 200 MG/10 ML VIAL IV ONE (15:27)
[2021-05-11] MEDS: NOREPINEPHRINE 16 MG in SODIUM CHLORIDE 0.9% 234 ML IV PRN (15:30)
[2021-05-11 16:47] LABS: ABG Base Excess -5.5 MMOL/L (-2.5-2.5); ABG HCO3 19.8 MMOL/L (20-26); ABG Oxygen Saturation 92.2 % (95-100); ABG PCO2 30.5 MM HG (35-48); ABG PO2 69.4 MM HG (80-95); ABG TCO2 16.8 MMOL/L (23-27); Allen Test Positive; Pt O2 Delivery Device Ventilator
[2021-05-12] MEDS ORDERED: MIDAZOLAM 100 MG in SODIUM CHLORIDE 0.9% 80 ML IV PRN (01:11)
[2021-05-12] MEDS: metroNIDAZOLE INJ 500 MG/100 ML PREMIX IV SCH ×2 (01:36→08:03)
[2021-05-12] MEDS: THIAMINE INJ 100 MG, FOLIC ACID INJ 1 MG, MULTIVITAMIN INJ 10 ML in DEXTROSE 5% NACL 0.... IV SCH (03:19)
[2021-05-12 03:33] LABS: Basophils # 0.1 10*3/uL (0.0-0.2); Basophils % 0.4 % (0.0-0.8); Eosinophils % 0.1 % (0.00-10.9); Hematocrit 32.5 VOL% (35.7-47.0); Hemoglobin 10.6 GM/DL (12.0-16.0); Immature Granulocytes % 4.2 %; Immature Granulocytes Absolute 0.86 #; Lymphocytes # 1.9 10*3/uL (1.4-4.0); Lymphocytes % 9.4 % (21.3-54.2); Mean Corpuscular HGB Conc 32.6 GM/DL (32-36); Monocytes % 8.3 % (1.7-12.7); NRBC # 3.21 10*3/uL; Neutrophils % 77.6 % (38.7-73.9); Platelet Count 58 T/CUMM (130-400); Red Blood Count 3.42 MC/CUMM (3.8-5.5); Red Cell Distribution Width 24.3 % (9.3-17.3); White Blood Count 20.5 T/CUMM (4-12)
[2021-05-12 03:48] LABS: Albumin 1.5 G/DL (3.4-5.0); Calcium 8.6 MG/DL (8.5-10.1); Osmolality,Calculated 288.3 MOS/KG (273-304); Potassium 3.9 MMOL/L (3.5-5.1); Total Protein 5.4 G/DL (6.4-8.2)
[2021-05-12 03:50] LABS: Bilirubin,Total 18.5 MG/DL (0.20-1.00)
[2021-05-12 03:53] LABS: Band Neutrophils 2 % (0-10); Hypochromia Slight; Lymphocytes 2 % (20-55); Microcytosis Slight; Nucleated Red Blood Cells 19 (0-5); Platelet Estimate Decreased; Segmented Neutrophils 89 % (50-85); Total Cells Counted 100
[2021-05-12 03:58] LABS: ABG Base Excess -6.5 MMOL/L (-2.5-2.5); ABG HCO3 17.1 MMOL/L (20-26); ABG Oxygen Saturation 71.3 % (95-100); ABG PCO2 28.1 MM HG (35-48); ABG PH 7.402 (7.35-7.45)
[2021-05-12 04:06] LABS: ABG PO2 38.7 MM HG (80-95)
[2021-05-12] MEDS: HYDROCORTISONE 100 MG VIAL IV SCH ×3 (06:21→22:12)
[2021-05-12] MEDS: SPIRONOLACTONE 50 MG TABLET PO SCH (08:03)
[2021-05-12] MEDS: LEVOTHYROXINE 50 MCG TABLET PO SCH (08:03)
[2021-05-12] MEDS: RIFAXIMIN 550 MG TABLET PO SCH ×2 (08:03→20:46)
[2021-05-12] MEDS: LEVOFLOXACIN INJ 750 MG/150 ML PREMIX IV SCH (08:03)
[2021-05-12] MEDS: PANTOPRAZOLE 40 MG VIAL IV SCH (08:04)
[2021-05-12] MEDS: NOREPINEPHRINE 16 MG in SODIUM CHLORIDE 0.9% 234 ML IV PRN ×3 (08:05→23:59)
[2021-05-12] MEDS: cefTRIAXone 1,000 MG in SODIUM CHLORIDE 0.9% 100 ML IV SCH (08:40)
[2021-05-12 08:58] LABS: INR 1.7; PT Patient Result 18.2 SECS (10.5-12.0)
[2021-05-12] MEDS: SKIN HEALING OINT (AQUAPHOR) 50 GM TUBE TOP SCH (09:10)
[2021-05-12] MEDS: SILVER SULFADIAZINE 1% CREAM 25 GM TUBE TOP SCH (09:10)
[2021-05-12] MEDS: DESITIN 4OZ/NYSTATIN 15 GRAM MIXTURE PASTE TOP SCH ×2 (09:10→20:51)
[2021-05-12] MEDS: LACTULOSE 20 GM/30 ML UDCUP PER TUBE SCH ×2 (09:10→20:46)
[2021-05-12] MEDS ORDERED: ALBUMIN 25% 25 GM/100 ML VIAL IV ONE (16:25)
[2021-05-13] MEDS: THIAMINE INJ 100 MG, FOLIC ACID INJ 1 MG, MULTIVITAMIN INJ 10 ML in DEXTROSE 5% NACL 0.... IV SCH (03:00)
[2021-05-13 03:18] LABS: Basophils % 0.2 % (0.0-0.8); Eosinophils % 0.1 % (0.00-10.9); Hematocrit 27.2 VOL% (35.7-47.0); Hemoglobin 8.9 GM/DL (12.0-16.0); Immature Granulocytes Absolute 0.78 #; Lymphocytes # 1.8 10*3/uL (1.4-4.0); Mean Corpuscular HGB Conc 32.7 GM/DL (32-36); Mean Corpuscular Volume 97.1 FL (87-102); Mean Platelet Volume 12.2 FL (9.6-12.0); Monocytes % 8.8 % (1.7-12.7); NRBC # 2.82 10*3/uL; Neutrophils % 77.9 % (38.7-73.9); Platelet Count 59 T/CUMM (130-400); White Blood Count 19.7 T/CUMM (4-12)
[2021-05-13 03:37] LABS: Band Neutrophils 3 % (0-10); Hypochromia 1+; Lymphocytes 7 % (20-55); Myelocytes 2 %; Nucleated Red Blood Cells 18 (0-5); Polychromasia Slight; Segmented Neutrophils 85 % (50-85); Target Cells Slight; Total Cells Counted 100
[2021-05-13 03:38] LABS: Anisocytosis 1+; Microcytosis 1+; Platelet Estimate Decreased
[2021-05-13 03:49] LABS: INR 1.9; PT Patient Result 20.5 SECS (10.5-12.0)
[2021-05-13 03:50] LABS: Albumin 1.8 G/DL (3.4-5.0); Calcium 8.5 MG/DL (8.5-10.1); Osmolality,Calculated 295.1 MOS/KG (273-304); Potassium 4.3 MMOL/L (3.5-5.1); Total Protein 5.1 G/DL (6.4-8.2)
[2021-05-13 03:56] LABS: ABG Base Excess -7.7 MMOL/L (-2.5-2.5); ABG HCO3 15.7 MMOL/L (20-26); ABG Oxygen Saturation 99.2 % (95-100); ABG PCO2 25.8 MM HG (35-48); ABG PH 7.403 (7.35-7.45); ABG PO2 176.7 MM HG (80-95); ABG TCO2 16.5 MMOL/L (23-27)
[2021-05-13 04:02] LABS: Bilirubin,Total 20.1 MG/DL (0.20-1.00)
[2021-05-13] MEDS: HYDROCORTISONE 100 MG VIAL IV SCH ×3 (06:29→22:03)
[2021-05-13] MEDS: LEVOTHYROXINE 50 MCG TABLET PO SCH (08:29)
[2021-05-13] MEDS: LACTULOSE 20 GM/30 ML UDCUP PER TUBE SCH ×3 (08:29→21:55)
[2021-05-13] MEDS: RIFAXIMIN 550 MG TABLET PO SCH ×2 (08:30→21:55)
[2021-05-13] MEDS: SPIRONOLACTONE 50 MG TABLET PO SCH (08:30)
[2021-05-13] MEDS: cefTRIAXone 1,000 MG in SODIUM CHLORIDE 0.9% 100 ML IV SCH (08:32)
[2021-05-13] MEDS: PANTOPRAZOLE 40 MG VIAL IV SCH (08:32)
[2021-05-13] MEDS: DESITIN 4OZ/NYSTATIN 15 GRAM MIXTURE PASTE TOP SCH ×2 (08:33→21:55)
[2021-05-13] MEDS: SILVER SULFADIAZINE 1% CREAM 25 GM TUBE TOP SCH (08:34)
[2021-05-13] MEDS: SKIN HEALING OINT (AQUAPHOR) 50 GM TUBE TOP SCH (08:34)
[2021-05-13] MEDS: NOREPINEPHRINE 16 MG in SODIUM CHLORIDE 0.9% 234 ML IV PRN (09:51)
[2021-05-13] MEDS ORDERED: ALBUMIN 25% 25 GM/100 ML VIAL IV ONE (14:59)
[2021-05-14] MEDS: THIAMINE INJ 100 MG, FOLIC ACID INJ 1 MG, MULTIVITAMIN INJ 10 ML in DEXTROSE 5% NACL 0.... IV SCH (03:31)
[2021-05-14 04:00] LABS: ABG Base Excess -6.5 MMOL/L (-2.5-2.5); ABG HCO3 17.1 MMOL/L (20-26); ABG Oxygen Saturation 98.5 % (95-100); ABG PCO2 27.3 MM HG (35-48); ABG PH 7.415 (7.35-7.45); ABG PO2 137.5 MM HG (80-95)
[2021-05-14 04:13] LABS: Basophils % 0.1 % (0.0-0.8); Hematocrit 26.1 VOL% (35.7-47.0); Hemoglobin 8.3 GM/DL (12.0-16.0); Immature Granulocytes % 1.9 %; Immature Granulocytes Absolute 0.29 #; Lymphocytes # 1.9 10*3/uL (1.4-4.0); Lymphocytes % 12.3 % (21.3-54.2); Mean Corpuscular HGB Conc 31.8 GM/DL (32-36); Mean Platelet Volume 12.5 FL (9.6-12.0); Monocytes % 7.1 % (1.7-12.7); NRBC # 0.28 10*3/uL; Neutrophils % 78.6 % (38.7-73.9); Platelet Count 49 T/CUMM (130-400); Red Blood Count 2.61 MC/CUMM (3.8-5.5); Red Cell Distribution Width 25.9 % (9.3-17.3)
[2021-05-14 04:34] LABS: Calcium 8.4 MG/DL (8.5-10.1); Osmolality,Calculated 316.1 MOS/KG (273-304); Potassium 3.8 MMOL/L (3.5-5.1); Total Protein 4.8 G/DL (6.4-8.2)
[2021-05-14 04:48] LABS: Hypochromia 1+; Microcytosis 1+; Target Cells Few
[2021-05-14 04:49] LABS: Burr Cells Slight; Platelet Estimate Decreased; Polychromasia Slight
[2021-05-14] MEDS: HYDROCORTISONE 100 MG VIAL IV SCH ×3 (06:10→22:53)
[2021-05-14] MEDS: SPIRONOLACTONE 50 MG TABLET PO SCH (08:47)
[2021-05-14] MEDS: LEVOTHYROXINE 50 MCG TABLET PO SCH (08:48)
[2021-05-14] MEDS: LACTULOSE 20 GM/30 ML UDCUP PER TUBE SCH ×4 (08:48→21:50)
[2021-05-14] MEDS: RIFAXIMIN 550 MG TABLET PO SCH ×2 (08:48→21:50)
[2021-05-14] MEDS: cefTRIAXone 1,000 MG in SODIUM CHLORIDE 0.9% 100 ML IV SCH (08:49)
[2021-05-14] MEDS: PANTOPRAZOLE 40 MG VIAL IV SCH (08:51)
[2021-05-14] MEDS: DESITIN 4OZ/NYSTATIN 15 GRAM MIXTURE PASTE TOP SCH ×2 (08:53→21:50)
[2021-05-14] MEDS: SKIN HEALING OINT (AQUAPHOR) 50 GM TUBE TOP SCH (08:54)
[2021-05-14] MEDS: SILVER SULFADIAZINE 1% CREAM 25 GM TUBE TOP SCH (08:54)
[2021-05-14] MEDS: DEXTROSE 5% NACL 0.45% 1,000 ML IV SCH ×2 (08:55→21:50)
[2021-05-14 10:00] LABS: INR 2.1; PT Patient Result 22.5 SECS (10.5-12.0)
[2021-05-14] MEDS ORDERED: SODIUM CHLORIDE 0.9% 1,000 ML IV SCH (10:30)
[2021-05-14] MEDS: NOREPINEPHRINE 16 MG in SODIUM CHLORIDE 0.9% 234 ML IV PRN (11:00)
[2021-05-15] MEDS: DEXTROSE 5% NACL 0.45% 1,000 ML IV SCH ×3 (00:25→14:11)
[2021-05-15 04:25] LABS: ABG Base Excess -5.4 MMOL/L (-2.5-2.5); ABG Oxygen Saturation 98.9 % (95-100); ABG TCO2 17.2 MMOL/L (23-27)
[2021-05-15 04:34] LABS: Basophils % 0.1 % (0.0-0.8); Hematocrit 28.2 VOL% (35.7-47.0); Hemoglobin 9.2 GM/DL (12.0-16.0); Immature Granulocytes % 1.4 %; Immature Granulocytes Absolute 0.22 #; Lymphocytes # 1.7 10*3/uL (1.4-4.0); Lymphocytes % 10.3 % (21.3-54.2); Mean Corpuscular HGB Conc 32.6 GM/DL (32-36); Mean Corpuscular Volume 98.6 FL (87-102); Mean Platelet Volume 12.5 FL (9.6-12.0); Monocytes % 8.2 % (1.7-12.7); NRBC # 0.22 10*3/uL; Platelet Count 53 T/CUMM (130-400); Red Blood Count 2.86 MC/CUMM (3.8-5.5); Red Cell Distribution Width 26.5 % (9.3-17.3); White Blood Count 16.1 T/CUMM (4-12)
[2021-05-15 04:40] LABS: Calcium 9.6 MG/DL (8.5-10.1); Osmolality,Calculated 309.6 MOS/KG (273-304); Potassium 3.5 MMOL/L (3.5-5.1); Total Protein 5.1 G/DL (6.4-8.2)
[2021-05-15 04:42] LABS: Bilirubin,Total 23.7 MG/DL (0.20-1.00)
[2021-05-15 04:54] LABS: Band Neutrophils 2 % (0-10); Hypochromia 1+; Lymphocytes 7 % (20-55); Nucleated Red Blood Cells 3 (0-5); Segmented Neutrophils 87 % (50-85); Total Cells Counted 100
[2021-05-15 04:55] LABS: Macrocytosis 1+; Platelet Estimate Decreased; Polychromasia Slight; Target Cells Few
[2021-05-15] MEDS: HYDROCORTISONE 100 MG VIAL IV SCH ×3 (05:50→21:31)
[2021-05-15] MEDS: LACTULOSE 20 GM/30 ML UDCUP PER TUBE SCH ×4 (08:38→21:34)
[2021-05-15] MEDS: SPIRONOLACTONE 50 MG TABLET PO SCH (08:39)
[2021-05-15] MEDS: LEVOTHYROXINE 50 MCG TABLET PO SCH (08:39)
[2021-05-15] MEDS: PANTOPRAZOLE 40 MG VIAL IV SCH (08:39)
[2021-05-15] MEDS: SKIN HEALING OINT (AQUAPHOR) 50 GM TUBE TOP SCH (08:40)
[2021-05-15] MEDS: DESITIN 4OZ/NYSTATIN 15 GRAM MIXTURE PASTE TOP SCH ×2 (08:40→21:35)
[2021-05-15] MEDS: RIFAXIMIN 550 MG TABLET PO SCH ×2 (08:40→21:34)
[2021-05-15] MEDS: cefTRIAXone 1,000 MG in SODIUM CHLORIDE 0.9% 100 ML IV SCH (08:54)
[2021-05-15] MEDS: MORPHINE 2 MG/1 ML SYRINGE IV PRN (09:49)
[2021-05-15] MEDS: SILVER SULFADIAZINE 1% CREAM 25 GM TUBE TOP SCH (11:10)
[2021-05-16] MEDS: DEXTROSE 5% NACL 0.45% 1,000 ML IV SCH ×3 (03:33→17:14)
[2021-05-16 03:40] LABS: ABG Base Excess -6.9 MMOL/L (-2.5-2.5); ABG HCO3 17.9 MMOL/L (20-26); ABG Oxygen Saturation 92.5 % (95-100); ABG PCO2 33.2 MM HG (35-48); ABG PH 7.349 (7.35-7.45); ABG PO2 73.4 MM HG (80-95); ABG TCO2 18.9 MMOL/L (23-27); Allen Test Positive; Pt O2 Delivery Device Ventilator
[2021-05-16 04:49] LABS: Basophils % 0.1 % (0.0-0.8); Hemoglobin 9.2 GM/DL (12.0-16.0); Immature Granulocytes % 0.9 %; Immature Granulocytes Absolute 0.15 #; Lymphocytes # 1.5 10*3/uL (1.4-4.0); Lymphocytes % 8.5 % (21.3-54.2); Mean Corpuscular HGB Conc 32.9 GM/DL (32-36); Mean Corpuscular Volume 97.6 FL (87-102); NRBC # 0.24 10*3/uL; Neutrophils % 83.5 % (38.7-73.9); Platelet Count 50 T/CUMM (130-400); Red Blood Count 2.87 MC/CUMM (3.8-5.5); Red Cell Distribution Width 27.1 % (9.3-17.3); White Blood Count 17.1 T/CUMM (4-12)
[2021-05-16 05:04] LABS: Calcium 9.5 MG/DL (8.5-10.1); Osmolality,Calculated 306.8 MOS/KG (273-304); Potassium 3.4 MMOL/L (3.5-5.1)
[2021-05-16 05:12] LABS: Band Neutrophils 1 % (0-10); Hypochromia Slight; Lymphocytes 7 % (20-55); Platelet Estimate Decreased; Segmented Neutrophils 87 % (50-85); Total Cells Counted 100
[2021-05-16] MEDS: HYDROCORTISONE 100 MG VIAL IV SCH (05:13)
[2021-05-16 05:25] LABS: Albumin 1.8 G/DL (3.4-5.0); Calcium 9.8 MG/DL (8.5-10.1); Osmolality,Calculated 306.8 MOS/KG (273-304); Potassium 3.4 MMOL/L (3.5-5.1)
[2021-05-16 05:30] LABS: Bilirubin,Total 23.7 MG/DL (0.20-1.00)
[2021-05-16] MEDS: PANTOPRAZOLE 40 MG VIAL IV SCH (10:13)
[2021-05-16] MEDS: LACTULOSE 20 GM/30 ML UDCUP PER TUBE SCH ×4 (10:13→20:51)
[2021-05-16] MEDS: LEVOTHYROXINE 50 MCG TABLET PO SCH (10:14)
[2021-05-16] MEDS: SPIRONOLACTONE 50 MG TABLET PO SCH (10:14)
[2021-05-16] MEDS: RIFAXIMIN 550 MG TABLET PO SCH ×2 (10:14→20:52)
[2021-05-16] MEDS: DESITIN 4OZ/NYSTATIN 15 GRAM MIXTURE PASTE TOP SCH ×2 (10:15→21:05)
[2021-05-16] MEDS: SKIN HEALING OINT (AQUAPHOR) 50 GM TUBE TOP SCH (10:17)
[2021-05-16] MEDS: SILVER SULFADIAZINE 1% CREAM 25 GM TUBE TOP SCH (10:18)
[2021-05-16] MEDS: MORPHINE 2 MG/1 ML SYRINGE IV PRN (11:05)
[2021-05-16] MEDS ORDERED: ATROPINE 1 MG/10 ML SYRINGE ONE (14:48)
[2021-05-16] MEDS: MIDAZOLAM 100 MG in SODIUM CHLORIDE 0.9% 80 ML IV PRN (17:19)
[2021-05-16] MEDS: NOREPINEPHRINE 16 MG in SODIUM CHLORIDE 0.9% 234 ML IV PRN (23:15)
[2021-05-17 04:31] LABS: ABG Base Excess -6.5 MMOL/L (-2.5-2.5); ABG HCO3 19.1 MMOL/L (20-26); ABG Oxygen Saturation 99.3 % (95-100); ABG PCO2 33.3 MM HG (35-48); ABG TCO2 16.8 MMOL/L (23-27)
[2021-05-17] MEDS: DEXTROSE 5% NACL 0.45% 1,000 ML IV SCH ×4 (06:52→20:45)
[2021-05-17 07:31] LABS: Basophils % 0.1 % (0.0-0.8); Hematocrit 29.6 VOL% (35.7-47.0); Hemoglobin 9.8 GM/DL (12.0-16.0); Immature Granulocytes Absolute 0.21 #; Lymphocytes # 1.7 10*3/uL (1.4-4.0); Lymphocytes % 7.9 % (21.3-54.2); Mean Corpuscular HGB Conc 33.1 GM/DL (32-36); Mean Corpuscular Volume 97.7 FL (87-102); Monocytes % 4.9 % (1.7-12.7); NRBC # 0.46 10*3/uL; Neutrophils % 86.1 % (38.7-73.9); Platelet Count 60 T/CUMM (130-400); Red Blood Count 3.03 MC/CUMM (3.8-5.5); Red Cell Distribution Width 27.9 % (9.3-17.3); White Blood Count 22.1 T/CUMM (4-12)
[2021-05-17 07:41] LABS: Albumin 1.7 G/DL (3.4-5.0); Calcium 9.4 MG/DL (8.5-10.1); Osmolality,Calculated 305.1 MOS/KG (273-304); Potassium 3.6 MMOL/L (3.5-5.1); Total Protein 4.9 G/DL (6.4-8.2)
[2021-05-17 08:54] LABS: Band Neutrophils 32 % (0-10); Lymphocytes 10 % (20-55); Metamyelocytes 2 %; Nucleated Red Blood Cells 1 (0-5); Platelet Estimate Decreased; Segmented Neutrophils 53 % (50-85); Smudge Cells Few; Total Cells Counted 100
[2021-05-17 08:55] LABS: Anisocytosis 3+; Burr Cells 2+; Macrocytosis 1+; Ovalocytes Few; Target Cells Few
[2021-05-17] MEDS: PANTOPRAZOLE 40 MG VIAL IV SCH (09:45)
[2021-05-17] MEDS: SILVER SULFADIAZINE 1% CREAM 25 GM TUBE TOP SCH (09:48)
[2021-05-17] MEDS: SPIRONOLACTONE 50 MG TABLET PO SCH (09:48)
[2021-05-17] MEDS: LACTULOSE 20 GM/30 ML UDCUP PER TUBE SCH ×4 (09:48→20:41)
[2021-05-17] MEDS: DESITIN 4OZ/NYSTATIN 15 GRAM MIXTURE PASTE TOP SCH ×2 (09:48→20:43)
[2021-05-17] MEDS: SKIN HEALING OINT (AQUAPHOR) 50 GM TUBE TOP SCH (09:48)
[2021-05-17] MEDS: RIFAXIMIN 550 MG TABLET PO SCH ×2 (09:48→20:41)
[2021-05-17] MEDS: LEVOTHYROXINE 50 MCG TABLET PO SCH (09:48)
[2021-05-17] MEDS: MORPHINE 2 MG/1 ML SYRINGE IV PRN (14:45)
[2021-05-18] MEDS: NOREPINEPHRINE 16 MG in SODIUM CHLORIDE 0.9% 234 ML IV PRN ×4 (00:03→23:50)
[2021-05-18 03:59] LABS: Basophils % 0.2 % (0.0-0.8); Hematocrit 30.4 VOL% (35.7-47.0); Immature Granulocytes % 1.5 %; Immature Granulocytes Absolute 0.39 #; Lymphocytes % 7.6 % (21.3-54.2); Mean Corpuscular HGB Conc 32.9 GM/DL (32-36); Mean Platelet Volume 12.7 FL (9.6-12.0); Monocytes % 4.2 % (1.7-12.7); NRBC # 0.86 10*3/uL; Neutrophils % 86.5 % (38.7-73.9); Platelet Count 74 T/CUMM (130-400); Red Blood Count 3.04 MC/CUMM (3.8-5.5); Red Cell Distribution Width 28.6 % (9.3-17.3); White Blood Count 25.9 T/CUMM (4-12)
[2021-05-18 04:17] LABS: Burr Cells Slight; Hypochromia 1+; Lymphocytes 2 % (20-55); Microcytosis 1+; Nucleated Red Blood Cells 6 (0-5); Ovalocytes Slight; Platelet Estimate Decreased; Segmented Neutrophils 94 % (50-85); Total Cells Counted 100
[2021-05-18 04:26] LABS: Albumin 1.7 G/DL (3.4-5.0); Bilirubin,Direct 19.09 MG/DL (0.0-0.20); Calcium 8.9 MG/DL (8.5-10.1); Osmolality,Calculated 307.1 MOS/KG (273-304); Potassium 3.7 MMOL/L (3.5-5.1)
[2021-05-18 04:29] LABS: Bilirubin,Indirect 4.3 MG/DL (0.0-1.0); Bilirubin,Total 23.4 MG/DL (0.20-1.00)
[2021-05-18 05:07] LABS: ABG Base Excess -8.4 MMOL/L (-2.5-2.5); ABG HCO3 17.7 MMOL/L (20-26); ABG Oxygen Saturation 99.1 % (95-100); ABG PCO2 32.7 MM HG (35-48); ABG TCO2 15.4 MMOL/L (23-27); Allen Test Positive; Pt O2 Delivery Device Ventilator
[2021-05-18] MEDS: DEXTROSE 5% NACL 0.45% 1,000 ML IV SCH ×3 (07:59→21:35)
[2021-05-18] MEDS: PANTOPRAZOLE 40 MG VIAL IV SCH (09:10)
[2021-05-18] MEDS: SPIRONOLACTONE 50 MG TABLET PO SCH (09:10)
[2021-05-18] MEDS: LACTULOSE 20 GM/30 ML UDCUP PER TUBE SCH ×4 (09:10→21:36)
[2021-05-18] MEDS: LEVOTHYROXINE 50 MCG TABLET PO SCH (09:10)
[2021-05-18] MEDS: RIFAXIMIN 550 MG TABLET PO SCH ×2 (09:10→21:36)
[2021-05-18] MEDS: SKIN HEALING OINT (AQUAPHOR) 50 GM TUBE TOP SCH (09:40)
[2021-05-18] MEDS: DESITIN 4OZ/NYSTATIN 15 GRAM MIXTURE PASTE TOP SCH ×2 (09:45→21:36)
[2021-05-18] MEDS: SILVER SULFADIAZINE 1% CREAM 25 GM TUBE TOP SCH (11:02)
[2021-05-18] MEDS: MIDAZOLAM 100 MG in SODIUM CHLORIDE 0.9% 80 ML IV PRN (16:45)
[2021-05-18 19:27] VITALS: BP 111/54
[2021-05-18] MEDS ORDERED: SODIUM CHLORIDE 0.9% 500 ML IV ONE (21:20)
[2021-05-18] MEDS ORDERED: ALBUMIN 25% 25 GM/100 ML VIAL IV ONE (21:20)
[2021-05-19] MEDS: DEXTROSE 5% NACL 0.45% 1,000 ML IV SCH ×3 (00:50→13:03)
[2021-05-19 04:33] LABS: ABG Base Excess -11.2 MMOL/L (-2.5-2.5); ABG HCO3 15.5 MMOL/L (20-26); ABG Oxygen Saturation 98.6 % (95-100); ABG PCO2 32.7 MM HG (35-48); ABG PH 7.266 (7.35-7.45); ABG TCO2 13.9 MMOL/L (23-27)
[2021-05-19 05:37] LABS: Calcium 8.9 MG/DL (8.5-10.1); Osmolality,Calculated 307.3 MOS/KG (273-304); Potassium 3.8 MMOL/L (3.5-5.1)
[2021-05-19] MEDS: NOREPINEPHRINE 16 MG in SODIUM CHLORIDE 0.9% 234 ML IV PRN (07:51)
[2021-05-19] MEDS: LEVOTHYROXINE 50 MCG TABLET PO SCH (08:20)
[2021-05-19] MEDS: LACTULOSE 20 GM/30 ML UDCUP PER TUBE SCH ×4 (08:21→20:58)
[2021-05-19] MEDS: SPIRONOLACTONE 50 MG TABLET PO SCH (08:22)
[2021-05-19] MEDS: PANTOPRAZOLE 40 MG VIAL IV SCH (08:25)
[2021-05-19] MEDS: SKIN HEALING OINT (AQUAPHOR) 50 GM TUBE TOP SCH (08:26)
[2021-05-19] MEDS: DESITIN 4OZ/NYSTATIN 15 GRAM MIXTURE PASTE TOP SCH ×2 (08:27→20:58)
[2021-05-19] MEDS: SILVER SULFADIAZINE 1% CREAM 25 GM TUBE TOP SCH (08:27)
[2021-05-19] MEDS ORDERED: MORPHINE 4 MG/1 ML VIAL IV PRN (12:50)
[2021-05-20] MEDS: NOREPINEPHRINE 16 MG in SODIUM CHLORIDE 0.9% 234 ML IV PRN ×3 (00:06→16:33)
[2021-05-20] MEDS: DEXTROSE 5% NACL 0.45% 1,000 ML IV SCH ×3 (02:15→16:33)
[2021-05-20 03:58] LABS: ABG Base Excess -11.6 MMOL/L (-2.5-2.5); ABG HCO3 14.1 MMOL/L (20-26); ABG Oxygen Saturation 98.2 % (95-100); ABG PCO2 31.2 MM HG (35-48); ABG PH 7.273 (7.35-7.45); ABG PO2 154.4 MM HG (80-95); ABG TCO2 15.1 MMOL/L (23-27)
[2021-05-20 04:09] LABS: Basophils % 0.1 % (0.0-0.8); Eosinophils % 0.1 % (0.00-10.9); Hematocrit 29.8 VOL% (35.7-47.0); Hemoglobin 9.7 GM/DL (12.0-16.0); Immature Granulocytes % 1.6 %; Immature Granulocytes Absolute 0.35 #; Lymphocytes # 1.2 10*3/uL (1.4-4.0); Lymphocytes % 5.5 % (21.3-54.2); Mean Corpuscular HGB Conc 32.6 GM/DL (32-36); Mean Corpuscular Volume 101.4 FL (87-102); Monocytes % 6.1 % (1.7-12.7); NRBC # 1.69 10*3/uL; Neutrophils % 86.6 % (38.7-73.9); Platelet Count 74 T/CUMM (130-400); Red Blood Count 2.94 MC/CUMM (3.8-5.5); Red Cell Distribution Width 28.9 % (9.3-17.3); White Blood Count 21.7 T/CUMM (4-12)
[2021-05-20 04:27] LABS: Burr Cells Slight; Hypochromia 1+; Lymphocytes 5 % (20-55); Microcytosis 1+; Nucleated Red Blood Cells 7 (0-5); Ovalocytes Slight; Platelet Estimate Decreased; Segmented Neutrophils 90 % (50-85); Total Cells Counted 100
[2021-05-20 04:28] LABS: Target Cells Slight
[2021-05-20 04:40] LABS: Calcium 8.9 MG/DL (8.5-10.1); Osmolality,Calculated 309.3 MOS/KG (273-304); Potassium 3.6 MMOL/L (3.5-5.1); Total Protein 4.9 G/DL (6.4-8.2)
[2021-05-20 04:43] LABS: Bilirubin,Total 27.6 MG/DL (0.20-1.00)
[2021-05-20] MEDS: SPIRONOLACTONE 50 MG TABLET PO SCH (09:31)
[2021-05-20] MEDS: LACTULOSE 20 GM/30 ML UDCUP PER TUBE SCH ×4 (09:31→21:15)
[2021-05-20] MEDS: PANTOPRAZOLE 40 MG VIAL IV SCH (09:31)
[2021-05-20] MEDS: LEVOTHYROXINE 50 MCG TABLET PO SCH (09:31)
[2021-05-20] MEDS: SKIN HEALING OINT (AQUAPHOR) 50 GM TUBE TOP SCH (09:32)
[2021-05-20] MEDS: SILVER SULFADIAZINE 1% CREAM 25 GM TUBE TOP SCH (09:32)
[2021-05-20] MEDS: DESITIN 4OZ/NYSTATIN 15 GRAM MIXTURE PASTE TOP SCH ×2 (09:32→21:18)
[2021-05-20 12:46] LABS: ABG Base Excess -11.9 MMOL/L (-2.5-2.5); ABG HCO3 12.8 MMOL/L (20-26); ABG Oxygen Saturation 99.3 % (95-100); ABG PCO2 25.8 MM HG (35-48); ABG PH 7.314 (7.35-7.45); ABG PO2 492.8 MM HG (80-95); ABG TCO2 13.6 MMOL/L (23-27)
[2021-05-20] MEDS ORDERED: NOREPINEPHRINE 4 MG/4 ML VIAL IV ONE (15:19)
[2021-05-20] MEDS ORDERED: VASOPRESSIN 100 UNITS in SODIUM CHLORIDE 0.9% 95 ML IV PRN (16:37)
[2021-05-21 04:17] LABS: Allen Test Positive; Pt O2 Delivery Device Ventilator
[2021-05-21 04:30] LABS: ABG Base Excess -13.6 MMOL/L (-2.5-2.5); ABG HCO3 12.3 MMOL/L (20-26); ABG Oxygen Saturation 98.3 % (95-100); ABG PCO2 28.7 MM HG (35-48); ABG PH 7.249 (7.35-7.45); ABG PO2 162.5 MM HG (80-95); ABG TCO2 13.2 MMOL/L (23-27)
[2021-05-21 04:38] LABS: Basophils % 0.2 % (0.0-0.8); Eosinophils % 0.1 % (0.00-10.9); Hematocrit 32.9 VOL% (35.7-47.0); Hemoglobin 10.4 GM/DL (12.0-16.0); Immature Granulocytes % 2.3 %; Immature Granulocytes Absolute 0.46 #; Lymphocytes # 1.2 10*3/uL (1.4-4.0); Mean Corpuscular HGB Conc 31.6 GM/DL (32-36); Mean Corpuscular Volume 101.2 FL (87-102); Monocytes % 8.6 % (1.7-12.7); NRBC # 3.62 10*3/uL; Neutrophils % 82.8 % (38.7-73.9); Platelet Count 72 T/CUMM (130-400); Red Blood Count 3.25 MC/CUMM (3.8-5.5); Red Cell Distribution Width 28.9 % (9.3-17.3); White Blood Count 20.1 T/CUMM (4-12)
[2021-05-21 04:56] LABS: Lymphocytes 3 % (20-55); Nucleated Red Blood Cells 18 (0-5); Platelet Estimate Decreased; Segmented Neutrophils 93 % (50-85); Total Cells Counted 100
[2021-05-21 04:59] LABS: Albumin 1.8 G/DL (3.4-5.0); Osmolality,Calculated 304.5 MOS/KG (273-304); Potassium 3.7 MMOL/L (3.5-5.1)
[2021-05-21] MEDS: NOREPINEPHRINE 16 MG in SODIUM CHLORIDE 0.9% 234 ML IV PRN ×3 (05:38→19:00)
[2021-05-21] MEDS: DEXTROSE 5% NACL 0.45% 1,000 ML IV SCH (06:30)
[2021-05-21] MEDS: LEVOTHYROXINE 50 MCG TABLET PO SCH (09:35)
[2021-05-21] MEDS: LACTULOSE 20 GM/30 ML UDCUP PER TUBE SCH ×2 (09:35→21:01)
[2021-05-21] MEDS: PANTOPRAZOLE 40 MG VIAL IV SCH (09:35)
[2021-05-21] MEDS: SPIRONOLACTONE 50 MG TABLET PO SCH (09:35)
[2021-05-21] MEDS: DEXTROSE 5% NACL 0.9% 1,000 ML IV SCH ×2 (09:42→20:19)
[2021-05-21] MEDS: SILVER SULFADIAZINE 1% CREAM 25 GM TUBE TOP SCH (09:56)
[2021-05-21] MEDS: DESITIN 4OZ/NYSTATIN 15 GRAM MIXTURE PASTE TOP SCH ×2 (09:56→21:03)
[2021-05-21] MEDS: SKIN HEALING OINT (AQUAPHOR) 50 GM TUBE TOP SCH (09:56)
[2021-05-21] MEDS ORDERED: NOREPINEPHRINE 4 MG/4 ML VIAL IV ONE (18:41)
[2021-05-22] MEDS: NOREPINEPHRINE 16 MG in SODIUM CHLORIDE 0.9% 234 ML IV PRN ×2 (01:40→07:53)
[2021-05-22 04:04] LABS: ABG Base Excess -14.8 MMOL/L (-2.5-2.5); ABG HCO3 13.1 MMOL/L (20-26); ABG Oxygen Saturation 95.4 % (95-100); ABG PCO2 28.8 MM HG (35-48); ABG PH 7.222 (7.35-7.45); ABG PO2 94.6 MM HG (80-95)
[2021-05-22 04:25] LABS: Basophils % 0.2 % (0.0-0.8); Eosinophils % 0.1 % (0.00-10.9); Hematocrit 30.1 VOL% (35.7-47.0); Hemoglobin 9.8 GM/DL (12.0-16.0); Immature Granulocytes % 1.7 %; Immature Granulocytes Absolute 0.32 #; Lymphocytes # 1.1 10*3/uL (1.4-4.0); Lymphocytes % 6.1 % (21.3-54.2); Mean Corpuscular HGB Conc 32.6 GM/DL (32-36); Monocytes % 8.1 % (1.7-12.7); NRBC # 5.08 10*3/uL; Neutrophils % 83.8 % (38.7-73.9); Platelet Count 64 T/CUMM (130-400); Red Blood Count 2.95 MC/CUMM (3.8-5.5); Red Cell Distribution Width 28.9 % (9.3-17.3); White Blood Count 18.3 T/CUMM (4-12)
[2021-05-22 04:47] LABS: Hypochromia 1+; Lymphocytes 3 % (20-55); Microcytosis 1+; Nucleated Red Blood Cells 37 (0-5); Platelet Estimate Decreased; Segmented Neutrophils 90 % (50-85); Total Cells Counted 100
[2021-05-22 04:52] LABS: Albumin 1.7 G/DL (3.4-5.0); Calcium 8.7 MG/DL (8.5-10.1); Osmolality,Calculated 307.4 MOS/KG (273-304); Potassium 3.7 MMOL/L (3.5-5.1); Total Protein 4.9 G/DL (6.4-8.2)
[2021-05-22] MEDS: DEXTROSE 5% NACL 0.9% 1,000 ML IV SCH ×2 (06:24→16:26)
[2021-05-22] MEDS: LACTULOSE 20 GM/30 ML UDCUP PER TUBE SCH (08:28)
[2021-05-22] MEDS: SPIRONOLACTONE 50 MG TABLET PO SCH (08:28)
[2021-05-22] MEDS: PANTOPRAZOLE 40 MG VIAL IV SCH (08:28)
[2021-05-22] MEDS: LEVOTHYROXINE 50 MCG TABLET PO SCH (08:28)
[2021-05-22] MEDS: SKIN HEALING OINT (AQUAPHOR) 50 GM TUBE TOP SCH (13:34)
[2021-05-22] MEDS: SILVER SULFADIAZINE 1% CREAM 25 GM TUBE TOP SCH (13:35)
[2021-05-22] MEDS: DESITIN 4OZ/NYSTATIN 15 GRAM MIXTURE PASTE TOP SCH (13:35)
== END 2021-05-22 21:08 | disposition expired | DRG 432 ==
LOC: N.ED 14:09 → SUATTDRO 19:56 → N.EDINP 19:56 → N.3E 05-06 17:19 → N.ICU 05-07 04:05
PROVIDERS: ADMIT Internal Medicine; ATTEND Internal Medicine